=== PATIENT | female | born 1950 | race Caucasian/White ===

== ENCOUNTER 2020-04-26 09:43 | Outpatient (REF) | payer MEDICARE, SELFPAY ==
[2020-04-26 12:06] LABS: Alanine Aminotransferase 19 U/L (0-31); Albumin Level 4.7 g/dL (3.5-5.0); Alkaline Phosphatase 54 U/L (39-117); Anion Gap 11 (12-20); Aspartate Amino Transferase 19 U/L (5-31); Bilirubin Total 0.6 mg/dL (0.0-1.0); Blood Urea Nitrogen 10 mg/dL (9-16); Calcium 9.2 mg/dL (8.4-10.2); Carbon Dioxide 28 mmol/L (22-29); Chloride 104 mmol/L (96-108); Estimated Glomerular Filt Rate > 60; Glucose Random 102 mg/dL (60-115); Potassium 4.3 mmol/l (3.3-5.1); Sodium 139 mmol/L (135-145); Total Protein 7.1 g/dL (6.5-8.0)
== END 2020-04-26 09:44 | disposition home or self-care (01) ==
LOC: HO.HMGCLDS 09:43
PROVIDERS: PCP Internal Medicine; Visit Provider Internal Medicine
DX: I10 Essential (primary) hypertension (principal); E78.9 Disorder of lipoprotein metabolism, unspecified; J44.9 Chronic obstructive pulmonary disease, unspecified
CPT/HCPCS: 80053

== ENCOUNTER 2020-09-03 09:26 | Outpatient (REF) | payer MEDICARE, SELFPAY ==
[2020-09-03 11:07] LABS: MANUAL DIFF FLAG NO
[2020-09-03 11:22] LABS: Basophils Absolute Auto 0.1 X10*3/uL (0.0-0.2); Basophils Percent Auto 1.1 % (0-2); Eosinophils Absolute Auto 0.7 X10*3/uL (0.0-0.4); Eosinophils Percent Auto 10.4 % (0-4); Hematocrit 40.8 % (37-47); Hemoglobin 13.3 g/dl (12.0-16.0); Imm Gran Abs Auto 0.02 X10*3/uL (0.00-0.03); Imm Gran Pct Auto 0.3 % (0.0-0.4); Lymphocytes Absolute Auto 2.5 X10*3/uL (1.2-4.9); Lymphocytes Percent Auto 38.4 % (20-40); Mean Corpuscular HGB Conc 32.6 g/dl (31.0-35.0); Mean Corpuscular Hemoglobin 30.4 pg (27.0-33.0); Mean Corpuscular Volume 93.4 fL (80-98); Mean Platelet Volume 11.7 fL (9.4-12.3); Monocytes Absolute Auto 0.6 X10*3/uL (0.1-1.2); Monocytes Percent Auto 8.7 % (2-11); Neutrophils Absolute Auto 2.6 X10*3/uL (2.0-8.3); Neutrophils Percent Auto 41.1 % (45-73); Platelet Count 245 X10*3/uL (160-400); Red Blood Count 4.37 X10*6/uL (4.20-5.50); Red Cell Distribution Width 12.1 % (11.0-16.0); White Blood Count 6.4 X10*3/uL (4.8-10.8)
[2020-09-03 11:55] LABS: Anion Gap 14 (12-20); Blood Urea Nitrogen 14 mg/dL (9-16); Calcium 8.9 mg/dL (8.4-10.2); Carbon Dioxide 26 mmol/L (22-29); Chloride 106 mmol/L (96-108); Cholesterol 120 mg/dL; Estimated Glomerular Filt Rate > 60; Glucose Fasting 105 mg/dL (60-99); HDL Cholesterol 37 mg/dL; LDL Cholesterol Calculated 44 mg/dl; Sodium 142 mmol/L (135-145); Triglycerides 195 mg/dL
== END 2020-09-03 09:27 | disposition home or self-care (01) ==
LOC: HO.HMGCLDS 09:26
PROVIDERS: PCP Internal Medicine; Visit Provider Internal Medicine
DX: J44.9 Chronic obstructive pulmonary disease, unspecified (principal); E78.9 Disorder of lipoprotein metabolism, unspecified; I10 Essential (primary) hypertension
CPT/HCPCS: 36415; 80048; 80061; 85025

== ENCOUNTER → 2021-03-28 07:26 | Outpatient (BNVA) | payer MEDICARE, SELFPAY | PROVIDERS: PCP Internal Medicine; Visit Provider Physician Assistant | DX: Z12.11 Encounter for screening for malignant neoplasm of colon (principal); J44.9 Chronic obstructive pulmonary disease, unspecified | CPT/HCPCS: 99202 ==

== ENCOUNTER 2021-04-16 09:43 | Outpatient (REF) | payer MEDICARE, SELFPAY ==
[2021-04-16 12:21] LABS: Alanine Aminotransferase 17 U/L (0-31); Albumin Level 4.4 g/dL (3.5-5.0); Alkaline Phosphatase 57 U/L (39-117); Anion Gap 13 (12-20); Aspartate Amino Transferase 15 U/L (5-31); Bilirubin Total 0.4 mg/dL (0.0-1.0); Blood Urea Nitrogen 9 mg/dL (9-16); Calcium 9.1 mg/dL (8.4-10.2); Carbon Dioxide 26 mmol/L (22-29); Chloride 105 mmol/L (96-108); Cholesterol 137 mg/dL; Estimated Glomerular Filt Rate > 60; Glucose Fasting 110 mg/dL (60-99); HDL Cholesterol 33 mg/dL; LDL Cholesterol Calculated 46 mg/dl; Potassium 4.2 mmol/L (3.3-5.1); Sodium 140 mmol/L (135-145); Triglycerides 291 mg/dL
== END 2021-04-16 09:44 | disposition home or self-care (01) ==
LOC: HO.HMGCLDS 09:43
PROVIDERS: PCP Internal Medicine; Visit Provider Internal Medicine
DX: E78.9 Disorder of lipoprotein metabolism, unspecified (principal); I10 Essential (primary) hypertension; J44.9 Chronic obstructive pulmonary disease, unspecified; R73.01 Impaired fasting glucose
CPT/HCPCS: 36415; 80053; 80061

== ENCOUNTER 2021-06-11 07:58 | Day surgery (SDC) | payer MEDICARE, SELFPAY ==
[2021-06-04 14:10] VITALS: BMI 31.3
--- NOTE | 2021-06-10 12:56 | HO.ANESPROP2 ---
Documented by User: Marybeth Mckeon NP 06/10/21 13:01 HPI - Anesthesia Eval Consult details Narrative: 70yo F for Colonoscopy PMFSH Active Problems Active Problems: All Active Problems (Updated 05/07/21 @ 11:06 by Chandler Brand MD) Obesity due to excess calories (Acute) Colon cancer screening (Acute) Impaired fasting blood sugar (Acute) COPD (chronic obstructive pulmonary disease) (Acute) Lipid disorder (Acute) Hypertension, essential (Acute) Past Medical History Medical History COPD (chronic obstructive pulmonary disease) Hypertension, essential Lipid disorder Family History Family History Father Brain tumor Diabetes mellitus Mother Colon cancer Alzheimer's disease Maternal Grandmother Unknown family medical history Maternal Grandfather Unknown family medical history Paternal Grandmother No problems noted. Paternal Grandfather No problems noted. Brother No problems noted. Son No problems noted. Daughter No problems noted. Son Back problem Surgical History Surgical History History of acoustic neuroma History of total hysterectomy History of tubal ligation Hx of colonoscopy Social History Social History Housing: Other (mobile home) Alcohol intake: current Alcohol intake frequency: does not drink Alcohol type: wine Patient Tobacco Use Status: Never used Tobacco Use of substances other than those prescribed or required for medical reasons: No Are you DNR?: No Advance Directives: No Advance Directives Information Provided: Yes Current occupational status: retired Meds Allergies Allergy/AdvReac Type Severity Reaction Status Date / Time codeine AdvReac Unknown severe Verified 05/07/21 10:45 headaches Exam Exam Date and Time: June 10, 2021 1256 Height,Weight and Vital Signs: Height 5 ft 7 in Weight 90.718 kg Pertinent Lab Results Pertinent Lab Results: Laboratory Tests 09/03/20 04/16/21 09:51 09:50 WBC 6.4 Hgb 13.3 Hct 40.8 Plt Count 245 Sodium 140 Potassium 4.2 Chloride 105 Carbon Dioxide 26 BUN 9 Creatinine 0.76 Assessment and Plan Assessment Anesthesia Assessment: Chart Reviewed Documented by User: Tammy Colon MD 06/11/21 09:31 PMF Past Medical History Medical History COPD (chronic obstructive pulmonary disease) Hypertension, essential Lipid disorder Family History Family History Father Brain tumor Diabetes mellitus Mother Colon cancer Alzheimer's disease Maternal Grandmother Unknown family medical history Maternal Grandfather Unknown family medical history Paternal Grandmother No problems noted. Paternal Grandfather No problems noted. Brother No problems noted. Son No problems noted. Daughter No problems noted. Son Back problem Family history of problems with anesthesia: No Surgical History Surgical History History of acoustic neuroma History of total hysterectomy History of tubal ligation Hx of colonoscopy History of Problems with Anesthesia: No Social History Social History Housing: Other (mobile home) Alcohol intake: current Alcohol intake frequency: does not drink Alcohol type: wine Patient Tobacco Use Status: Never used Tobacco Use of substances other than those prescribed or required for medical reasons: No Are you DNR?: No Advance Directives: No Advance Directives Information Provided: Yes Current occupational status: retired Meds Allergies Allergy/AdvReac Type Severity Reaction Status Date / Time codeine AdvReac Unknown severe Verified 05/07/21 10:45 headaches Exam Height,Weight and Vital Signs: Height 5 ft 7 in Weight 90.718 kg Vital Signs Temp Pulse Resp BP Pulse Ox 06/11/21 08:26 97.6 F 68 16 144/78 H 98 Airway Mallampati Class: II TM Dist: >3cm Neck ROM: Full Denture: Upper Heart: RRR Lungs: CTAB Assessment and Plan Assessment Anesthesia Assessment: Anesthesia Plan Discussed Final Anesthetic Review Family History of Problems with Anesthesia: No History of Problems with Anesthesia: No NPO: Yes ASA Class: II Final Preanesthetic Review: No Changes in Pt Med Stat, Meds/Allgs Chart Reviewed, Consent Obtained/Reviewed and Anes Risks/Benef Reviewed Patient Risk: Low Procedure Risk: Low Assessment/Block/Sedation in SS: Assess/Block/Sedation-SS Anesthetic Plan Anesthetic Plan: MAC: Disposition: Standard PACU
[2021-06-11 08:24] VITALS: BMI 30.4
[2021-06-11 08:26] VITALS: BP 144/78; PULSE 68; RESP 16; TEMP 36.4; O2SAT 98
--- NOTE | 2021-06-11 08:29 | MHC.SHP ---
Pre-Procedural Eval Section A Date of Service: 06/11/21 The patient is an INPATIENT: No The History & Physical has been completed within 30 days and I have reviewed it.: No Section B Chief Complaint: screening Details of Present Illness: Colon cancer screening Relevant Family History (Specify if Yes): Yes Relevant Social History: None Present Medications: see Short Stay Collaborative assessment Medical History: Significant History (COPD (chronic obstructive pulmonary disease) Hypertension, essential Lipid disorder) History of Previous Operations: Relevant previous surgery/procedure and date(s) (History of acoustic neuroma History of total hysterectomy History of tubal ligation Hx of colonoscopy) Allergies: Allergies Allergy/AdvReac Type Severity Reaction Status Date / Time codeine AdvReac Unknown severe Verified 05/07/21 10:45 headaches Review of Systems Sugical H&P ROS: Negative: Constitution, Cardiovascular, Respiratory and Gastrointestinal Exam Surgical H&P Exam: Normal: Heart, Normal: Lungs, Normal: Extremities and Normal: Abdomen Plan Diagnosis/Plan: Unchanged I have reviewed the history and physical and performed a pertinent physical examination on my patient. No changes have occurred unless specified.
--- NOTE | 2021-06-11 08:31 | P.OP_ITS ---
Operative Note Operative Note Date of Service: 06/11/21 Narrative: Pre-op diagnosis:?Colon cancer screening, family history of colon cancer (mom at age 75 yrs and at age 78 Yrs) Post-op diagnosis:?other (Colon polyp, diverticulosis) Procedure:? COLONOSCOPY TILL CECUM WITH SNARE POLYPECTOMY Consent: Indications for the procedure and potential complications of bleeding, perforation, reaction to medications and missed diagnosis were discussed with the patient and informed consent was obtained. Instrument: Olympus PCF H 190 L variable stiffness pediatric colonoscope Monitoring: Vital signs and clinical assessment, intermittent blood pressure monitoring, continuous EKG monitoring, Pulse oximetry and Carbon Dioxide monitoring were done throughout the procedure. Colon withdrawl time was 19 minutes. Procedure: The patient was placed in the left lateral decubitis position and pre-procedure medications were administered. After a digital rectal examination of the ano-rectum, the video colonoscope was inserted into the rectum and advanced through the colon to the cecum. The colonoscope was slowly withdrawn in a retrograde panoramic fashion and the colon mucosa was carefully examined including a retroflexed view of the rectum. Findings and interventions are described below. Procedure Difficulty:? Colon was long and tortuous and there was some loop formation Findings: Terminal Ileum: Not evaluated Cecum:? Normal Ascending Colon:? Moderate diverticulosis throughout the colon Transverse Colon:? Moderate diverticulosis throughout the colon Descending Colon:? Moderate diverticulosis throughout the colon Sigmoid Colon:? A 9-10 mm diminutive polyp removed with a cold snare. Moderate diverticulosis Rectum:? Normal Ano-rectum:? Normal Colon preparation:? Good? after some irrigation Impression and Post Procedure Diagnosis: Colonoscopy Findings: One medium sized polyp removed Moderate diverticulosis seen in the entire colon Plan: Await pathology results Patient has an appointment on 06/26/21 in the [facility] with DOMINGO Ashraf. Repeat Colonoscopy interval based on path results - in 5 years if polyps are adenomatous and 10 years if polyps are hyperplastic and if patient is in stable health. (Pt had 3 colonoscopies in the past which were negative). Colon polyps and diverticulosis handouts were given in the discharge area Surgeon:?Low Ruiz MD Anesthesia:?MAC (Pooja Contreras CRNA) Was an Mobile Practice Lead used for this Procedure?:?Yes Mobile Practice Lead:?Pamela Raymundo Estimated blood loss (mL):?0 Pathology:?other (A. sigmoid polyp) Condition:?stable Disposition:?PACU
[2021-06-11] MEDS: Lactated Ringers 1,000 ML 100 ML IVCONT (08:32)
[2021-06-11 10:25] VITALS: BP 134/90; PULSE 66; RESP 16; TEMP 36.1; O2SAT 98
[2021-06-11 10:39] VITALS: BP 141/69; PULSE 64; RESP 16; O2SAT 99
[2021-06-11 10:50] VITALS: BP 162/69; PULSE 61; RESP 16; TEMP 36; O2SAT 96
== END 2021-06-11 11:08 | disposition home or self-care (01) ==
PROVIDERS: PCP Internal Medicine; Visit Provider Internal Medicine Gastroenterology
PROC: 0DJD8ZZ Inspection of Lower Intestinal Tract, Via Natural or Artificial Opening Endoscopic (ICD-10-PCS; CPT 45378; principal; 2021-06-11 09:10)
DX: Z12.11 Encounter for screening for malignant neoplasm of colon (principal); Z80.0 Family history of malignant neoplasm of digestive organs; K63.5 Polyp of colon; K57.30 Diverticulosis of large intestine without perforation or abscess without bleeding; I10 Essential (primary) hypertension; E78.9 Disorder of lipoprotein metabolism, unspecified; J44.9 Chronic obstructive pulmonary disease, unspecified; Z79.899 Other long term (current) drug therapy; Z88.8 Allergy status to other drugs, medicaments and biological substances
CPT/HCPCS: 45385; 88305

== ENCOUNTER → 2021-08-08 10:37 | Outpatient (BNVA) | payer MEDICARE, SELFPAY | PROVIDERS: PCP Internal Medicine; Referring Provider Internal Medicine; Visit Provider Physician Assistant | DX: K57.30 Diverticulosis of large intestine without perforation or abscess without bleeding (principal); K63.5 Polyp of colon | CPT/HCPCS: 99212 ==

== ENCOUNTER 2021-09-03 09:31 | Outpatient (REF) | payer MEDICARE, SELFPAY ==
[2021-09-03 11:56] LABS: Estimated Average Glucose 128 mg/dL; Hemoglobin A1C 149.6361 umol/L; Hemoglobin A1c % 6.1 %
[2021-09-03 12:04] LABS: Alanine Aminotransferase 14 U/L (0-31); Albumin Level 4.3 g/dL (3.5-5.0); Alkaline Phosphatase 48 U/L (39-117); Anion Gap 15 (12-20); Aspartate Amino Transferase 15 U/L (5-31); Bilirubin Total 0.6 mg/dL (0.0-1.0); Blood Urea Nitrogen 15 mg/dL (9-16); Calcium 9.3 mg/dL (8.4-10.2); Carbon Dioxide 25 mmol/L (22-29); Chloride 105 mmol/L (96-108); Estimated Glomerular Filt Rate > 60; Glucose Random 99 mg/dL (60-115); Potassium 4.1 mmol/L (3.3-5.1); Sodium 141 mmol/L (135-145); Total Protein 6.9 g/dL (6.5-8.0)
== END 2021-09-03 09:32 | disposition home or self-care (01) ==
LOC: HO.HMGCLDS 09:31
PROVIDERS: Visit Provider Internal Medicine
DX: E78.9 Disorder of lipoprotein metabolism, unspecified (principal); I10 Essential (primary) hypertension; J44.9 Chronic obstructive pulmonary disease, unspecified; R73.01 Impaired fasting glucose; E66.09 Other obesity due to excess calories
CPT/HCPCS: 36415; 80053; 83036

== ENCOUNTER 2022-07-22 10:00 | Outpatient (REF) | payer MEDICARE, SELFPAY ==
[2022-07-22 14:11] LABS: MANUAL DIFF FLAG NO
[2022-07-22 14:26] LABS: Basophils Percent Auto 0.4 % (0-2); Eosinophils Absolute Auto 0.1 X10*3/uL (0.0-0.4); Eosinophils Percent Auto 1.8 % (0-4); Hematocrit 42.9 % (37.0-47.0); Hemoglobin 13.8 g/dl (12.0-16.0); Imm Gran Abs Auto 0.02 X10*3/uL (0.00-0.03); Imm Gran Pct Auto 0.3 % (0.0-0.4); Lymphocytes Absolute Auto 2.3 X10*3/uL (1.2-4.9); Lymphocytes Percent Auto 30.8 % (20-40); Mean Corpuscular HGB Conc 32.2 g/dl (31.0-35.0); Mean Corpuscular Hemoglobin 30.1 pg (27.0-33.0); Mean Corpuscular Volume 93.5 fL (80.0-98.0); Mean Platelet Volume 11.6 fL (9.4-12.3); Monocytes Absolute Auto 0.7 X10*3/uL (0.1-1.2); Monocytes Percent Auto 8.8 % (2-11); Neutrophils Absolute Auto 4.3 x10*3/uL (2.0-8.3); Neutrophils Percent Auto 57.9 % (45-73); Platelet Count 292 X10*3/uL (160-400); Red Blood Count 4.59 X10*6/uL (4.20-5.50); White Blood Count 7.4 X10*3/uL (4.8-10.8)
[2022-07-22 15:33] LABS: Estimated Average Glucose 117 mg/dL; Hemoglobin A1c % 5.7 %
[2022-07-22 16:09] LABS: Alanine Aminotransferase 13 U/L (0-31); Albumin Level 4.7 g/dL (3.5-5.0); Alkaline Phosphatase 59 U/L (39-117); Anion Gap 13 (12-20); Aspartate Amino Transferase 15 U/L (5-31); Bilirubin Total 0.5 mg/dL (0.0-1.0); Blood Urea Nitrogen 17 mg/dL (9-16); Calcium 9.9 mg/dL (8.4-10.2); Carbon Dioxide 25 mmol/L (22-29); Chloride 105 mmol/L (96-108); Estimated Glomerular Filt Rate > 60; Glucose Random 115 mg/dL (60-115); Potassium 4.6 mmol/L (3.3-5.1); Sodium 138 mmol/L (135-145); Total Protein 7.3 g/dL (6.5-8.0)
== END 2022-07-22 10:01 | disposition home or self-care (01) ==
LOC: HO.HMGCLDS 10:00
PROVIDERS: PCP Internal Medicine; Visit Provider Internal Medicine
DX: E66.09 Other obesity due to excess calories (principal); E78.9 Disorder of lipoprotein metabolism, unspecified; J44.9 Chronic obstructive pulmonary disease, unspecified; R73.01 Impaired fasting glucose; I10 Essential (primary) hypertension
CPT/HCPCS: 36415; 80053; 83036; 85025

== ENCOUNTER 2022-08-11 13:56 | Outpatient (REF) | payer MEDICARE, SELFPAY | END 2022-08-11 13:57 | disposition home or self-care (01) | LOC: HO.LAB 13:56 | PROVIDERS: Visit Provider Internal Medicine | DX: R30.0 Dysuria (principal) | CPT/HCPCS: 87086 ==

== ENCOUNTER 2022-12-01 09:12 | Outpatient (REF) | payer MEDICARE, SELFPAY ==
[2022-12-01 11:27] LABS: Appearance Urine Hazy; Color Urine Yellow; Glucose Urine UA Negative (Negative); Leukocyte Esterase Urine Large (3+) (Negative); Nitrite Urine Negative (Negative); Specific Gravity - Urine 1.015 (1.005-1.025); UMIC TRIGGER UACC YES; Urine Blood Small (1+) (Negative); Urine Ketones Negative (Negative); Urine Protein Negative (Neg-Trace)
[2022-12-01 12:17] LABS: Alanine Aminotransferase 13 U/L (0-31); Albumin Level 4.2 g/dL (3.5-5.0); Alkaline Phosphatase 60 U/L (39-117); Anion Gap 12 (12-20); Aspartate Amino Transferase 15 U/L (5-31); Bilirubin Total 0.5 mg/dL (0.0-1.0); Blood Urea Nitrogen 11 mg/dL (9-16); Calcium 9.6 mg/dL (8.4-10.2); Carbon Dioxide 27 mmol/L (22-29); Chloride 106 mmol/L (96-108); Cholesterol 155 mg/dL; Estimated Glomerular Filt Rate > 60; Glucose Fasting 104 mg/dL (60-99); HDL Cholesterol 37 mg/dL; LDL Cholesterol Calculated 70 mg/dl; Potassium 4.1 mmol/L (3.3-5.1); Sodium 141 mmol/L (135-145); Total Protein 6.7 g/dL (6.5-8.0); Triglycerides 242 mg/dL
[2022-12-01 12:43] LABS: Bacteria Urine Trace (None Seen); Other Crystals Urine Present; Squamous Epithelial Cell Urine >20 /HPF (0-2); UACC Culture Trigger YES; WBC Urine 21-50 /HPF (0-5)
== END 2022-12-01 09:13 | disposition home or self-care (01) ==
LOC: HO.HMGCLDS 09:12
PROVIDERS: PCP Internal Medicine; Visit Provider Internal Medicine
DX: E66.09 Other obesity due to excess calories (principal); E78.9 Disorder of lipoprotein metabolism, unspecified; I10 Essential (primary) hypertension; J44.9 Chronic obstructive pulmonary disease, unspecified; R73.01 Impaired fasting glucose; R82.90 Unspecified abnormal findings in urine
CPT/HCPCS: 36415; 80053; 80061; 81001; 87086

== ENCOUNTER 2022-12-03 09:04 | Outpatient (REF) | payer MEDICARE, SELFPAY ==
[2022-12-03 11:19] LABS: Appearance Urine Clear; Color Urine Dark Yellow; Glucose Urine UA Negative (Negative); Leukocyte Esterase Urine Moderate (2+) (Negative); Nitrite Urine Negative (Negative); UMIC TRIGGER UACC YES; Urine Blood Trace (Negative); Urine Ketones Trace mg/dL (Negative); Urine Protein 30 (1+) mg/dL (Neg-Trace)
[2022-12-03 11:26] LABS: Bacteria Urine None Seen (None Seen); Hyaline Casts Urine 0-2 /LPF (0-2); UACC Culture Trigger YES
== END 2022-12-03 09:05 | disposition home or self-care (01) ==
LOC: HO.HMGCLDS 09:04
PROVIDERS: PCP Internal Medicine; Visit Provider Internal Medicine
DX: R30.0 Dysuria (principal); R82.90 Unspecified abnormal findings in urine
CPT/HCPCS: 81001; 87086

== ENCOUNTER 2023-03-18 09:35 | Outpatient (AMB) | payer MEDICARE, SELFPAY ==
[2023-03-18 09:37] VITALS: BP 128/76; PULSE 74; O2SAT 95; BMI 29.6
--- NOTE | 2023-03-18 09:37 | A.OFFPC_ITS ---
Vital Signs 03/18/23 09:37 Height 5 ft 7 in Weight 189 lb BMI 29.6 BP 128/76 Blood Pressure Location Lt brachial Position Sitting Pulse 74 Pulse Source Pulse Oximeter Pulse Oximetry (%) 95 Oxygen Delivery Method Room Air Intake Visit Reasons: follow up Allergies codeine Adverse Reaction (Unknown, Verified 03/18/23 09:39) severe headaches Medication List - Last Reconciled 03/18/23 by Chandler Brand MD atenolol 50 mg PO DAILY 90 days atorvastatin 20 mg PO DAILY 90 days lisinopril 5 mg (1/2 x 10 mg) PO DAILY 90 days tiotropium bromide 2.5 mcg/actuation (Spiriva Respimat) 2 puffs inhalation DAILY 90 days Tobacco use date assessed: 03/18/23 Fall risk assessment: No Falls in past year Last assessed Fall Risk: 03/18/23 Dental Screening Dental Screen Date: 03/18/23 Did you have a dental visit in the last 12 months?: No Did you have a dental problem in the last 6 months where you did not have access to dental care?: No Was dental information given to patient?: No HPI follow up HPI Details Patient is 72-year-old female came in today for her regular follow-up appointment Blood pressure is 120/76 patient is on atenolol 50 mg , and lisinopril 5 mg She is also on atorvastatin 20 mg for lipid control COPD/asthma stable with Spiriva Patient have impaired fasting sugar she is controlling her diet we will be re peating labs again in May She continued to have recurrent UTIs, she has started taking cranberry tablets And have added probiotic which is helping She said that she canceled urology appointment as when the appointment time came she did not had any symptoms. She is also complaining of itching genitalia off and on I have sent nystatin cream to be used as needed. I have also ordered UA for the patient if she start having symptoms again she will have it done. She is due for labs in May. Bladder ultrasound ordered as well. BMI is 29.6 patient is trying to lose weight She is fairly active and do gardening as well. Follow-up 4 months. [facility] Medical History COPD (chronic obstructive pulmonary disease) Hypertension, essential Lipid disorder Surgical History History of acoustic neuroma History of total hysterectomy History of tubal ligation Hx of colonoscopy Family History Father Brain tumor Diabetes mellitus Mother Colon cancer Alzheimer's disease Maternal Grandmother Unknown family medical history Maternal Grandfather Unknown family medical history Paternal Grandmother No problems noted. Paternal Grandfather No problems noted. Brother No problems noted. Son No problems noted. Daughter No problems noted. Son Back problem Social History Housing: Other (mobile home) Alcohol intake: current Alcohol intake frequency: does not drink Alcohol type: wine Patient Tobacco Use Status: Never used Tobacco e-Cigarette/Vaping Use: Never Used service: No Current occupational status: retired Cognitive needs: No Hearing needs: No Vision needs: Yes Questionnaire PHQ-9 Over the last 2 weeks, how often have you been bothered by any of the following problems? 1. Little interest or pleasure in doing things: not at all 2. Feeling down, depressed, or hopeless: not at all 3. Trouble falling or staying asleep, or sleeping too much: more than half the days 4. Feeling tired or having little energy: several days 5. Poor appetite or overeating: not at all 6. Feeling bad about yourself - or that you are a failure or have let yourself or your family down: not at all 7. Trouble concentrating on things, such as reading the newspaper or watching television: not at all 8. Moving or speaking so slowly that other people could have noticed. Or the opposite - being so fidgety or restless that you have been moving around a lot more than usual: not at all 9. Thoughts that you would be better off or of hurting yourself in some way: not at all Total score: 3 Depression Screening Interpretation: Negative 52023 - PHQ-9 Billing: Yes Source: Developed by Drs. Ángel Zhong, Anjana Leomns, Haile Puri and colleagues, with an educational maya from [employer]. Thrive Questionnaire Date Thrive assessed: 03/18/23 I am a: Patient What is your living situation today?: I have a steady place to live Within the past 12 months, did the food you bought not last and you didn't have the money to get more?: Sometimes True Within the past 12 months, did you worry whether your food would run out before you got money to buy more?: Sometimes True Do you have trouble paying for medicines?: No Do you have trouble getting transportation to medical appointments?: No Do you have trouble paying your heating and electricity bill?: No Do you have trouble taking care of your child, family member or friend?: No Do you have trouble with day-to-day activities such as bathing, preparing meals, shopping, managing finances, etc.?: No Are you currently unemployed and looking for a job?: No Are you interested in more education?: No Please select the resources that you would like help with: Food MIGUEL-7 AMB Questionnaire MIGUEL-7 Date MIGUEL - 7 assessed: 03/18/23 Feeling nervous, anxious, or on edge: 1 = Several days Not being able to stop or control worryin = Not at all Worrying too much about different things: 1 = Several days Trouble relaxin = Several days Being so restless that it is hard to sit still: 0 = Not at all Becoming easily annoyed or irritable: 0 = Not at all Feeling afraid as if something awful might happen: 1 = Several days Total MIGUEL-7 score (0-4 normal; 5-9 mild; 10-14 moderate; 15-21 severe): 4 Source: Developed by Drs. Ángel Zhong, Anjana Lemons, Haile Puri and colleagues, with an educational maya from [employer]. Review of Systems Const Denies chills and Denies fever(s) ENT Denies epistaxis and Denies nasal discharge Card Denies chest pain Resp Denies chest congestion, Denies cough and Denies hemoptysis GI Denies diarrhea and Denies nausea Skin/Breast Denies rash Neuro Reports no additional complaints Psych Reports no additional complaints Endo Reports no additional complaints Physical exam (Primary Care) Vital Signs: Last Vital Signs Pulse 74 03/18/23 09:37 BP 128/76 03/18/23 09:37 Pulse Ox 95 03/18/23 09:37 Oxygen Delivery Method Room Air 03/18/23 09:37 BMI result Body Mass Index 29.6 Tobacco/Smoking Status: Tobacco use Status Tobacco use date assessed 03/18/23 03/18/23 09:41 Patient Tobacco Use Status Never used Tobacco 03/18/23 09:41 e-Cigarette/Vaping Use Never Used 03/18/23 09:41 PHQ-9: PHQ-9 Score PHQ-9: Total score 3 03/18/23 10:11 Depression Screening Interpretation: Negative Thrive Assessment: Date of Thrive Assessment Date Thrive assessed 03/18/23 03/18/23 10:11 Const General: cooperative, comfortable and no acute distress Orientation/consciousness: patient oriented x3 HENMT Head: Yes normocephalic Eyes General: appearance normal, both eyes and all related structures Neck Neck: Yes supple Resp Effort & Inspection: normal respiratory effort, no cough and no stridor Cardio Rhythm: regular rhythm Heart sounds: S1 normal heart sound present and S2 normal heart sound present Skin General skin exam: turgor normal Neuro General: patient oriented x3, tone normal and moves all extremities Extrem Right lower extremity: no edema Left lower extremity: no edema Assessment and Plan Assessment & Plan (1) Hypertension, essential: Code(s): I10 - Essential (primary) hypertension (2) Lipid disorder: Code(s): E78.9 - Disorder of lipoprotein metabolism, unspecified (3) COPD (chronic obstructive pulmonary disease): Code(s): J44.9 - Chronic obstructive pulmonary disease, unspecified Qualifiers: COPD type: emphysema Emphysema type: other Qualified Code(s): J43.8 - Other emphysema (4) Impaired fasting blood sugar: Code(s): R73.01 - Impaired fasting glucose (5) Recurrent UTI: Code(s): N39.0 - Urinary tract infection, site not specified (6) Genital pruritus: Code(s): L29.3 - Anogenital pruritus, unspecified Plan Patient is 72-year-old female came in today for her regular follow-up appointment Blood pressure is 120/76 patient is on atenolol 50 mg , and lisinopril 5 mg She is also on atorvastatin 20 mg for lipid control COPD/asthma stable with Spiriva Patient have impaired fasting sugar she is controlling her diet we will be repeating labs again in May She continued to have recurrent UTIs, she has started taking cranberry tablets And have added probiotic which is helping She said that she canceled urology appointment as when the appointment time came she did not had any symptoms. She is also complaining of itching genitalia off and on I have sent nystatin cr eam to be used as needed. I have also ordered UA for the patient if she start having symptoms again she will have it done. She is due for labs in May. Bladder ultrasound ordered as well. BMI is 29.6 patient is trying to lose weight She is fairly active and do gardening as well. Follow-up 4 months. Orders: Orders Comprehensive [place]. Panel Fast Today E66.09 - Other obesity due to excess calories, E78.9 - Disorder of lipoprotein metabolism, unspecified, I10 - Essential (primary) hypertension, J44.9 - Chronic obstructive pulmonary disease, unspecified, R73.01 - Impaired fasting glucose Hemoglobin A1c Today E66.09 - Other obesity due to excess calories, E78.9 - Disorder of lipoprotein metabolism, unspecified, I10 - Essential (primary) hypertension, J44.9 - Chronic obstructive pulmonary disease, unspecified, R73.01 - Impaired fasting glucose Lipid Panel Today E66.09 - Other obesity due to excess calories, E78.9 - Disorder of lipoprotein metabolism, unspecified, I10 - Essential (primary) hypertension, J44.9 - Chronic obstructive pulmonary disease, unspecified, R73.01 - Impaired fasting glucose Complete Blood Count Auto Diff Today E66.09 - Other obesity due to excess calories, E78.9 - Disorder of lipoprotein metabolism, unspecified, I10 - Essential (primary) hypertension, J44.9 - Chronic obstructive pulmonary disease, unspecified, R73.01 - Impaired fasting glucose UA CC w/rflx Micro + Cult Today N39.0 - Urinary tract infection, site not specified US bladder Today N39.0 - Urinary tract infection, site not specified Medications: New nystatin 1 appl topical DAILY 30 grams 1RF 30 days Coding Level of Care Code Est Pt Level 4 (90684) Diagnoses Hypertension, essential I10 Lipid disorder E78.9 COPD (chronic obstructive pulmonary disease) J43.8 COPD type: emphysema Emphysema type: other Impaired fasting blood sugar R73.01 Recurrent UTI N39.0 Genital pruritus L29.3
== END 2023-03-18 11:53 | disposition home or self-care (01) ==
PROVIDERS: Visit Provider Internal Medicine
DX: I10 Essential (primary) hypertension (principal); E78.9 Disorder of lipoprotein metabolism, unspecified; J43.8 Other emphysema; R73.01 Impaired fasting glucose; N39.0 Urinary tract infection, site not specified; L29.3 Anogenital pruritus, unspecified
CPT/HCPCS: 99214

== ENCOUNTER 2023-03-24 10:19 | Outpatient (REF) | payer MEDICARE, SELFPAY ==
--- NOTE | ~2023-03-24 | US_ITS ---
EXAMINATION: US PELVIS LIMITED (BLADDER) CLINICAL INFORMATION: Urinary tract infection, site not specified. COMPARISON: None available. TECHNIQUE: Real-time imaging of the bladder. FINDINGS: BLADDER: Well distended and normal. Bilateral ureteral jets are demonstrated. Prevoid bladder volume is 171 mL. Postvoid bladder volume is 74 mL. US/US bladder IMPRESSION: Moderate postvoid residual
== END 2023-03-24 10:20 | disposition home or self-care (01) ==
LOC: HO.HMGCX 10:19
PROVIDERS: PCP Internal Medicine; Visit Provider Internal Medicine
DX: N39.0 Urinary tract infection, site not specified (principal)
CPT/HCPCS: 76857

== ENCOUNTER 2023-05-01 08:46 | Outpatient (REF) | payer MEDICARE, SELFPAY | END 2023-05-01 08:47 | disposition home or self-care (01) | LOC: HO.LNP 08:46 | PROVIDERS: PCP Internal Medicine; Visit Provider Nurse Practitioner Family | DX: N39.0 Urinary tract infection, site not specified (principal) | CPT/HCPCS: 51798; 81003; 87086 ==

== ENCOUNTER 2023-05-01 08:46 | Outpatient (AMB) | payer MEDICARE, SELFPAY ==
--- NOTE | 2023-05-01 09:03 | A.OFFVIS_ITS ---
Intake Intake Visit Reasons: Recurrent UTIS Intake Note: New Patient presents for initial visit for recurrent uti's Urology Medications: none Blood Thinner: none PVR: 17ml's *hysterectomy* Filler Sifter Helper Required: No Accompanied by: Friend Allergies codeine Adverse Reaction (Unknown, Verified 05/01/23 09:34) severe headaches Medication List - Last Reconciled 05/01/23 by RADHA PizarroP- atenolol 50 mg PO DAILY 90 days atorvastatin 20 mg PO DAILY 90 days estradiol 0.01%(0.1mg/gram) (Estrace) 1 g vaginal 3XW 90 days lisinopril 5 mg (1/2 x 10 mg) PO DAILY 90 days tiotropium bromide 2.5 mcg/actuation (Spiriva Respimat) 2 puffs inhalation DAILY 90 days HPI HPI Comments History of Present Illness Details Shira is a very pleasant 72-year-old female patient of Dr. Brand she presents to the office today with her sister in law. She has a past medical history of COPD, hypertension, and lipid disorder. She presents to the office today as a new patient for recurrent urinary tract infections. Patient reports noting approximately 6 urinary tract infections over the last year. She reports following up with her PCP regarding UTIs at which time a bladder ultrasound was ordered for further assessment evaluation. These results reviewed with the patient today. Bladder is well distended and normal. Bilateral ureteral jets are demonstrated. Pre void bladder volume is approximately 170 mL. Postvoid bladder volume is approximately 75 mL. In office urinalysis today with 3+ leukocytes negative nitrates. PVR 17 mL. Discussed at length potential causes for recurrent urinary tract infections. Patient reports having had a total hysterectomy in the 1970s ( in her 20s) due to ovarian cysts. She reports being told during previous hysterectomy right kidney was dropped and pushing on her bladder so they fixed her kidney. She does report having issues with her bowels. She reports at time she is constipated whereas other time she experiences diarrhea. She discusses the loss of her Jacques approximately 1 and half years ago and feels stressed with trying to maintain her home alone. She currently denies any UTI like symptoms. She denies urinary urgency, urinary frequency, incontinence, nocturia, hematuria, dysuria, foul smelling urine, changes to urinary stream, flank pain, fever, and or chills. She is happy with her current voiding parameters. When asked she reports to be drinking plenty of water daily. She otherwise offers no other issues or concerns at this time. [facility] Medical History Recurrent UTI COPD (chronic obstructive pulmonary disease) Lipid disorder Hypertension, essential Surgical History Hx of colonoscopy History of total hysterectomy History of tubal ligation History of acoustic neuroma Family History Father Brain tumor Diabetes mellitus Mother Colon cancer Alzheimer's disease Maternal Grandmother Unknown family medical history Maternal Grandfather Unknown family medical history Paternal Grandmother No problems noted. Paternal Grandfather No problems noted. Brother No problems noted. Son No problems noted. Daughter No problems noted. 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 Card Reports as per HPI Resp Reports as per HPI GI Reports no additional complaints Reports as per HPI Musc Reports no additional complaints Neuro Reports no additional complaints Psych Reports no additional complaints Endo Reports no additional complaints Aller/Immun Reports no additional complaints Physical Exam Const General: cooperative, healthy appearing, comfortable, no acute distress, well developed, alert and awake Orientation/consciousness: patient oriented x3 Limitations: no limitations HEENT Head: Yes normal to inspection, Yes normocephalic and Yes atraumatic Ears: hearing grossly normal bilaterally Eyes General: appearance normal, both eyes and all related structures Neck Neck: Yes normal visual inspection and Yes trachea midline Chest Chest palpation & inspection: normal inspection of the chest Resp Effort & Inspection: normal respiratory effort and able to speak in complete sentences Cardio Rate: regular rate GI Inspection: Yes normal to inspection General: Yes no CVA tenderness Back/Spine/Pelvis Back: no CVA tenderness Skin General skin exam: no rashes or lesions noted Neuro General: patient oriented x3 Extrem General: Yes normal to inspection Psych Appearance: grossly normal and well kempt Mental Status: mental status grossly normal Speech and movement: Normal speech and movement present and Clear speech present Affect: normal affect Attitude: cooperative Thought process: Normal thought process present Thought content: Normal thought content present Office Procedures Post Void Residual Post Residual Void Post Void Residual (PVR): 17 [id number] Void Residual by ultrasound Results AMB Urinalysis, Automated UA Leukoctes 500 Julian/uL Last Edit by Valentin Cintron on 05/01/23 09:16 UA Nitrite Negative Last Edit by Stewart Group Holdingssam Klyppermicaela on 05/01/23 09:16 UA Urobilinogen 0.2 mg/dL Last Edit by ZeaKalmicaela on 05/01/23 09:16 UA Protein 15 mg/dL Last Edit by Avatar Realitysantos Klyppermicaela on 05/01/23 09:16 UA pH 6.0 Last Edit by Avatar Realitysantos Cintron on 05/01/23 09:16 UA Blood 10 Russell/uL Last Edit by [employer]sam Klyppermicaela on 05/01/23 09:16 UA Specific [place] 1.015 Last Edit by ZeaKalmicaela on 05/01/23 09:16 UA Ketone Negative Last Edit by ZeaKalmicaela on 05/01/23 09:16 UA Bilirubin 0 mg/dL Last Edit by Avatar Realitysantos Klyppermicaela on 05/01/23 09:16 UA Glucose 0 mg/dL Last Edit by Avatar Realitysantos Klyppermicaela on 05/01/23 09:16 Results Reviewed Results Reviewed: Laboratory Last Values Urine pH (Auto) 6.0 05/01/23 09:07 Specific [place] (Auto) 1.015 05/01/23 09:07 Urine Protein (Auto) 15 mg/dL 05/01/23 09:07 Glucose (UA)(Auto) 0 mg/dL 05/01/23 09:07 Urine Ketones (Auto) Negative 05/01/23 09:07 Urine Blood (Auto) 10 Russell/uL 05/01/23 09:07 Urine Nitrite (Auto) Negative 05/01/23 09:07 Urine Bilirubin (Auto) 0 mg/dL 05/01/23 09:07 Urine Urobilinogen (Auto) 0.2 mg/dL 05/01/23 09:07 Leukocyte Esterase (Auto) 500 Julian/uL 05/01/23 09:07 Assessment & Plan Assessment & Plan (1) Recurrent UTI: Code(s): N39.0 - Urinary tract infection, site not specified (2) Complicated urinary tract infection: Code(s): N39.0 - Urinary tract infection, site not specified Plan In office urinalysis results reviewed with the patient today; as noted above; will send for urine culture. Patient currently denying any UTI like symptoms. She reports be happy with current voiding parameters. Recent bladder ultrasound results reviewed with the patient today; as noted above. Will obtain renal ultrasound for further assessment evaluation. Discussed at length potential causes of recurrent urinary tract infections as well as further management. Start Estrace cream as discussed and prescribed. Continue drinking plenty of water daily. Discussed UTI prevention with D mannose supplement, vitamin-C, increasing fluid intake, behavioral therapy with timed voiding, perineal hygiene and postcoital voiding, and management of constipation with stool softeners and increased fiber intake. Follow-up in 6-8 weeks with imaging to be completed prior; or sooner with any issues, concerns, and or questions. Orders: Orders US renal BI Today N20.0 - Calculus of kidney AMB Urinalysis Automated Today Z13.9 - Encounter for screening, unspecified AMB Post Void Residual by ultrasound Today N39.0 - Urinary tract infection, site not specified Medications: New estradiol 0.01%(0.1mg/gram) (Estrace) 1 g vaginal 3XW 90 days 42.5 grams 3RF Patient Instructions: The patient had an opportunity to ask questions regarding the treatment plan. All questions were answered. Physical exam, labs, and imaging were discussed and reviewed in detail. As well as risks, benefits, and discussion of treatment choices. No major barriers to understanding were identified. The patient expressed understanding and agreement with the above treatment plan. The patient was made aware they should contact our office by phone for worsening of their current condition, the appearance of new symptoms, or with any questions or concerns. Compliance is encouraged with any medications and follow up testing that is ordered. It is a privilege to be allowed the opportunity to participate in? your urological care.? Again, if you have any questions or concerns If you have any questions or concerns please do not hesitate to contact me. The office is [phone]. This note is constructed using voice recognition software. While every effort has been made to ensure accuracy associate professor of library science errors may have been included. Yours sincerely, ROBERT Pizarro-DEBBY Coding Level of Care Code New Pt Level 4 (62436) Diagnoses Recurrent UTI N39.0 Complicated urinary tract infection N39.0 CPT Codes Post Residual Void - PVR CPT Code: 96695-Mwzt Void Residual by ultrasound ([id number])
== END 2023-05-01 09:34 | disposition home or self-care (01) ==
PROVIDERS: PCP Internal Medicine; Visit Provider Nurse Practitioner Family
DX: Z13.9 Encounter for screening, unspecified (principal); N39.0 Urinary tract infection, site not specified
CPT/HCPCS: 99204

== ENCOUNTER 2023-05-01 15:59 | Outpatient (AMB) | payer MEDICARE, SELFPAY ==
--- NOTE | 2023-05-01 16:04 | AM.OFFWIN_ITS ---
Intake Vital Signs 05/01/23 16:06 Height 5 ft 7 in Weight 190 lb BMI 29.8 BP 120/78 Blood Pressure Location Lt brachial Position Sitting Pulse 90 Pulse Source Pulse Oximeter Temp 97.8 F Temp Source Temporal Artery Scan Pulse Oximetry (%) 97 Intake Visit Reasons: tick bite, left arm Intake Note: pt is here for c/o tick bite on left arm Patient Tobacco Use Status: Never used Tobacco Allergies codeine Adverse Reaction (Unknown, Verified 05/18/23 06:16) severe headaches Medication List - Last Reconciled 05/18/23 by Darryl Doyle MD atenolol 50 mg PO DAILY 90 days atorvastatin 20 mg PO DAILY 90 days doxycycline hyclate 100 mg PO ONCE 1 day estradiol 0.01%(0.1mg/gram) (Estrace) 1 g vaginal 3XW 90 days lisinopril 5 mg (1/2 x 10 mg) PO DAILY 90 days tiotropium bromide 2.5 mcg/actuation (Spiriva Respimat) 2 puffs inhalation DAILY 90 days Do you need a note to return to daycare/school/sports/work: Yes HPI tick bite, left arm HPI Details 72-year-old female presents to the [facility] for a sick visit. Patient reports that she has a tick bite on her left arm. Small erythema around the bite area. [facility] Medical History Recurrent UTI COPD (chronic obstructive pulmonary disease) Lipid disorder Hypertension, essential Surgical History Hx of colonoscopy History of total hysterectomy History of tubal ligation History of acoustic neuroma Family History Father Brain tumor Diabetes mellitus Mother Colon cancer Alzheimer's disease Maternal Grandmother Unknown family medical history Maternal Grandfather Unknown family medical history Paternal Grandmother No problems noted. Paternal Grandfather No problems noted. Brother No problems noted. Son No problems noted. Daughter No problems noted. Son Back problem Social History Housing: Other (mobile home) Alcohol intake: current Alcohol intake frequency: does not drink Alcohol type: wine Patient Tobacco Use Status: Never used Tobacco e-Cigarette/Vaping Use: Never Used service: No Current occupational status: retired Cognitive needs: No Hearing needs: No Vision needs: Yes Physical Exam Vital Signs: Last Vital Signs Temp 97.8 F 05/01/23 16:06 Pulse 90 05/01/23 16:06 BP 120/78 05/01/23 16:06 Pulse Ox 97 05/01/23 16:06 BMI result Body Mass Index 29.8 Skin Other: Left elbow: Erythematous area around a small hyperemic area. No tick visualized Results AMB Urinalysis, Automated UA Leukoctes 500 Julian/uL Last Edit by Ganji on 05/01/23 09:16 UA Nitrite Negative Last Edit by Ganji on 05/01/23 09:16 UA Urobilinogen 0.2 mg/dL Last Edit by Ganji on 05/01/23 09:16 UA Protein 15 mg/dL Last Edit by Ganji on 05/01/23 09:16 UA pH 6.0 Last Edit by Ganji on 05/01/23 09:16 UA Blood 10 Russell/uL Last Edit by Ganji on 05/01/23 09:16 UA Specific [place] 1.015 Last Edit by Ganji on 05/01/23 09:16 UA Ketone Negative Last Edit by Ganji on 05/01/23 09:16 UA Bilirubin 0 mg/dL Last Edit by Ganji on 05/01/23 09:16 UA Glucose 0 mg/dL Last Edit by Ganji on 05/01/23 09:16 Assessment & Plan Assessment & Plan (1) Tick bite: Code(s): W57.XXXA - Bitten or stung by nonvenomous insect and other nonvenomous arthropods, initial encounter Plan: Signs and symptoms of Lyme disease explained. Lyme titer in 3 weeks. Single dose of doxycycline provided. Orders: Orders Lyme IgG/IgM w/reflex to WB 05/01/23 W57.XXXA - Bitten or stung by nonvenomous insect and other nonvenomous arthropods, initial encounter Medications: New doxycycline hyclate 100 mg PO ONCE 1 cap 0RF 1 day Coding Level of Care Code Est Pt Level 3 (69413) Diagnoses Tick bite W57.XXXA
[2023-05-01 16:06] VITALS: BP 120/78; PULSE 90; TEMP 36.6; O2SAT 97; BMI 29.8
== END 2023-05-01 16:27 | disposition home or self-care (01) ==
PROVIDERS: PCP Internal Medicine; Visit Provider Internal Medicine
DX: T63.481A Toxic effect of venom of other arthropod, accidental (unintentional), initial encounter (principal)
CPT/HCPCS: 99213

== ENCOUNTER 2023-05-26 08:48 | Outpatient (REF) | payer MEDICARE, SELFPAY ==
--- NOTE | ~2023-05-26 | US_ITS ---
EXAMINATION: US RETROPERITONEAL LIMITED (RENAL ONLY) CLINICAL INFORMATION: Calculus of kidney. COMPARISON: None available. TECHNIQUE: Real-time imaging of the kidneys. FINDINGS: RIGHT KIDNEY: 13.6 x 5.3 x 6.7 cm (SAG x AP x TRV). The kidney is normal in size, contour, and echogenicity. Renal cortical thickness is normal. No calculi or focal parenchymal lesions. No hydronephrosis. LEFT KIDNEY: 12.8 x 5.8 x 5.2 cm (SAG x AP x TRV). The kidney is normal in size, contour, and echogenicity. Renal cortical thickness is normal. No calculi or focal parenchymal lesions. No hydronephrosis. US/US renal BI IMPRESSION: Unremarkable study.
== END 2023-05-26 08:49 | disposition home or self-care (01) ==
LOC: HO.HMGCX 08:48
PROVIDERS: PCP Internal Medicine; Visit Provider Nurse Practitioner Family
DX: N20.0 Calculus of kidney (principal)
CPT/HCPCS: 76775

== ENCOUNTER 2023-06-10 08:52 | Outpatient (AMB) | payer MEDICARE, SELFPAY ==
--- NOTE | 2023-06-10 09:21 | MHC.OFFVIS ---
Intake Intake Visit Reasons: 6w/US Intake Note: Patient presents for follow up visit for recurrent uti's/ultrasound (imaging 05/26/23) Urology Medications: estrace cream Blood Thinner: none PVR: 66ml's *hysterectomy* Criminal Legal Assistant Required: No Accompanied by: Self / Same As Patient Allergies codeine Adverse Reaction (Unknown, Verified 06/10/23 19:47) severe headaches Medication List - Last Reconciled 06/10/23 by RADHA PizarroP- atenolol 50 mg PO DAILY 90 days atorvastatin 20 mg PO DAILY 90 days estradiol 0.01%(0.1mg/gram) (Estrace) 1 g vaginal 3XW 90 days lisinopril 5 mg (1/2 x 10 mg) PO DAILY 90 days tiotropium bromide 2.5 mcg/actuation (Spiriva Respimat) 2 puffs inhalation DAILY 90 days HPI HPI Comments History of Present Illness Details Shira is a very pleasant 72-year-old female patient of Dr. Brand she presents to the office today with her sister in law. She has a past medical history of COPD, hypertension, and lipid disorder. She presents to the office today for follow-up. Of note, patient was seen approximately 6 weeks ago as a new patient for recurrent urinary tract infections at which time a renal ultrasound was ordered for further assessment evaluation in the patient was started on Estrace cream. In discussion with the patient today she reports to be doing and feeling well. Recent renal ultrasound results reviewed with the patient today. Bilateral kidneys with no calculi, lesions, and or hydronephrosis. Previous bladder ultrasound was ordered and performed by PCP which noted the bladder is well distended and normal. Bilateral ureteral jets are demonstrated. Pre void bladder volume is approximately 170 mL. Postvoid bladder volume is approximately 75 mL. In office urinalysis results reviewed with the patient today. PVR 66 mLs. Patient reports having had a total hysterectomy in the 1970s ( in her 20s) due to ovarian cysts. She does report having issues with her bowels. She reports at time she is constipated whereas other time she experiences diarrhea. She discusses the loss of her Jacques approximately 1 and half years ago and feels stressed with trying to maintain her home alone. She currently denies any UTI like symptoms. She denies urinary urgency, urinary frequency, incontinence, nocturia, hematuria, dysuria, foul smelling urine, changes to urinary stream, flank pain, fever, and or chills. She is happy with her current voiding parameters. When asked she reports to be drinking plenty of water daily. She otherwise offers no other issues or concerns at this time. ON LICENSE OF [facility] Medical History Recurrent UTI COPD (chronic obstructive pulmonary disease) Lipid disorder Hypertension, essential Surgical History Hx of colonoscopy History of total hysterectomy History of tubal ligation History of acoustic neuroma Family History Father Brain tumor Diabetes mellitus Mother Colon cancer Alzheimer's disease Maternal Grandmother Unknown family medical history Maternal Grandfather Unknown family medical history Paternal Grandmother No problems noted. Paternal Grandfather No problems noted. Brother No problems noted. Son No problems noted. Daughter No problems noted. 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 Card Reports as per HPI Resp Reports as per HPI GI Reports no additional complaints Reports as per HPI Musc Reports no additional complaints Neuro Reports no additional complaints Psych Reports no additional complaints Endo Reports no additional complaints Aller/Immun Reports no additional complaints Physical Exam Const General: cooperative, healthy appearing, comfortable, no acute distress, well developed, alert and awake Orientation/consciousness: patient oriented x3 Limitations: no limitations HEENT Head: Yes normal to inspection, Yes normocephalic and Yes atraumatic Ears: hearing grossly normal bilaterally Eyes General: appearance normal, both eyes and all related structures Neck Neck: Yes normal visual inspection and Yes trachea midline Chest Chest palpation & inspection: normal inspection of the chest Resp Effort & Inspection: normal respiratory effort and able to speak in complete sentences Cardio Rate: regular rate GI Inspection: Yes normal to inspection General: Yes no CVA tenderness Back/Spine/Pelvis Back: no CVA tenderness Skin General skin exam: no rashes or lesions noted Neuro General: patient oriented x3 Extrem General: Yes normal to inspection Psych Appearance: grossly normal and well kempt Mental Status: mental status grossly normal Speech and movement: Normal speech and movement present and Clear speech present Affect: normal affect Attitude: cooperative Thought process: Normal thought process present Thought content: Normal thought content present Office Procedures Post Void Residual Post Residual Void Post Void Residual (PVR): 66 [id number] Void Residual by ultrasound Results AMB Urinalysis, Automated UA Leukoctes 15 Julian/uL Last Edit by [employer] on 06/10/23 09:40 UA Nitrite Negative Last Edit by UGOBE on 06/10/23 09:40 UA Urobilinogen 0.2 mg/dL Last Edit by [employer] on 06/10/23 09:40 UA Protein 15 mg/dL Last Edit by [employer] on 06/10/23 09:40 UA pH 6.0 Last Edit by [employer] on 06/10/23 09:40 UA Blood 25 Russell/uL Last Edit by [employer] on 06/10/23 09:40 UA Specific [place] 1.015 Last Edit by [employer] on 06/10/23 09:40 UA Ketone Negative Last Edit by [employer] on 06/10/23 09:40 UA Bilirubin 0 mg/dL Last Edit by [employer] on 06/10/23 09:40 UA Glucose 0 mg/dL Last Edit by [employer] on 06/10/23 09:40 Results Reviewed Results Reviewed: Laboratory Last Values Urine pH (Auto) 6.0 06/10/23 09:29 Specific [place] (Auto) 1.015 06/10/23 09:29 Urine Protein (Auto) 15 mg/dL 06/10/23 09:29 Glucose (UA)(Auto) 0 mg/dL 06/10/23 09:29 Urine Ketones (Auto) Negative 06/10/23 09:29 Urine Blood (Auto) 25 Russell/uL 06/10/23 09:29 Urine Nitrite (Auto) Negative 06/10/23 09:29 Urine Bilirubin (Auto) 0 mg/dL 06/10/23 09:29 Urine Urobilinogen (Auto) 0.2 mg/dL 06/10/23 09:29 Leukocyte Esterase (Auto) 15 Julian/uL 06/10/23 09:29 Ordering Physician: Stefania Celeste Date of Service: 05/26/23 Procedure(s): US renal BI Accession Number(s): [id number] cc: Chandler Brand MD; Stefania Celeste~ EXAMINATION: US RETROPERITONEAL LIMITED (RENAL ONLY) CLINICAL INFORMATION: Calculus of kidney. COMPARISON: None available. TECHNIQUE: Real-time imaging of the kidneys. FINDINGS: RIGHT KIDNEY: 13.6 x 5.3 x 6.7 cm (SAG x AP x TRV). The kidney is normal in size, contour, and echogenicity. Renal cortical thickness is normal. No calculi or focal parenchymal lesions. No hydronephrosis. LEFT KIDNEY: 12.8 x 5.8 x 5.2 cm (SAG x AP x TRV). The kidney is normal in size, contour, and echogenicity. Renal cortical thickness is normal. No calculi or focal parenchymal lesions. No hydronephrosis. US/US renal BI IMPRESSION: Unremarkable study. Assessment & Plan Assessment & Plan (1) Recurrent UTI: Code(s): N39.0 - Urinary tract infection, site not specified Plan In office urinalysis results reviewed with the patient today; as noted above. Recent renal ultrasound results reviewed with the patient today; as noted above Continue Estrace cream as discussed and prescribed. Discussed at length potential causes of recurrent urinary tract infections. Discussed incomplete bladder emptying Discussed UTI prevention with D mannose supplement, vitamin-C, increasing fluid intake, behavioral therapy with timed voiding, perineal hygiene and postcoital voiding, and management of constipation with stool softeners and increased fiber intake. Discussed possible near future low-dose terazosin Follow-up in 3 months with PVR; or sooner with any issues, concerns, and or questions. Orders: Orders AMB Urinalysis Automated Today Z13.9 - Encounter for screening, unspecified AMB Post Void Residual by ultrasound Today N39.0 - Urinary tract infection, site not specified Patient Instructions: The patient had an opportunity to ask questions regarding the treatment plan. All questions were answered. Physical exam, labs, and imaging were discussed and reviewed in detail. As well as risks, benefits, and discussion of treatment choices. No major barriers to understanding were identified. The patient expressed understanding and agreement with the above treatment plan. The patient was made aware they should contact our office by phone for worsening of their current condition, the appearance of new symptoms, or with any questions or concerns. Compliance is encouraged with any medications and follow up testing that is ordered. It is a privilege to be allowed the opportunity to participate in? your urological care.? Again, if you have any questions or concerns If you have any questions or concerns please do not hesitate to contact me. The office is [phone]. This note is constructed using voice recognition software. While every effort has been made to ensure accuracy canal superintendent errors may have been included. Yours sincerely, SYDNIE Pizarro Coding Level of Care Code Est Pt Level 3 (11582) Diagnoses Recurrent UTI N39.0 CPT Codes Post Residual Void - PVR CPT Code: 36946-Yjxl Void Residual by ultrasound ([id number])
== END 2023-06-10 10:01 | disposition home or self-care (01) ==
PROVIDERS: PCP Internal Medicine; Visit Provider Nurse Practitioner Family
DX: N39.0 Urinary tract infection, site not specified (principal); Z13.9 Encounter for screening, unspecified
CPT/HCPCS: 99213

== ENCOUNTER → 2023-06-10 08:52 | Outpatient (BNVA) | payer MEDICARE, SELFPAY | PROVIDERS: PCP Internal Medicine; Visit Provider Nurse Practitioner Family | DX: N39.0 Urinary tract infection, site not specified (principal) | CPT/HCPCS: 51798; 81003; 99212 ==

== ENCOUNTER 2023-07-03 09:40 | Outpatient (REF) | payer MEDICARE, SELFPAY ==
[2023-07-03 13:22] LABS: MANUAL DIFF FLAG NO
[2023-07-03 13:34] LABS: Basophils Percent Auto 0.6 % (0-2); Eosinophils Absolute Auto 0.1 X10*3/uL (0.0-0.4); Eosinophils Percent Auto 2.1 % (0-4); Hematocrit 41.1 % (37.0-47.0); Hemoglobin 13.4 g/dl (12.0-16.0); Imm Gran Abs Auto 0.01 X10*3/uL (0.00-0.03); Imm Gran Pct Auto 0.2 % (0.0-0.4); Lymphocytes Absolute Auto 1.5 X10*3/uL (1.2-4.9); Lymphocytes Percent Auto 31.8 % (20-40); Mean Corpuscular HGB Conc 32.6 g/dl (31.0-35.0); Mean Corpuscular Hemoglobin 30.5 pg (27.0-33.0); Mean Corpuscular Volume 93.4 fL (80.0-98.0); Mean Platelet Volume 11.8 fL (9.4-12.3); Monocytes Absolute Auto 0.4 X10*3/uL (0.1-1.2); Monocytes Percent Auto 9.3 % (2-11); Neutrophils Absolute Auto 2.6 x10*3/uL (2.0-8.3); Platelet Count 258 X10*3/uL (160-400); Red Cell Distribution Width 12.2 % (11.0-16.0); White Blood Count 4.7 X10*3/uL (4.8-10.8)
[2023-07-03 13:39] LABS: Appearance Urine Cloudy; Color Urine Yellow; Glucose Urine UA Negative (Negative); Leukocyte Esterase Urine Negative (Negative); Nitrite Urine Negative (Negative); PH 7.5 (5.0-9.0); Specific Gravity - Urine 1.015 (1.005-1.025); Urine Blood Negative (Negative); Urine Ketones Negative (Negative); Urine Protein Negative (Neg-Trace)
[2023-07-03 13:54] LABS: Estimated Average Glucose 114 mg/dL; Hemoglobin A1c % 5.6 % (<6.0)
[2023-07-03 14:08] LABS: Alanine Aminotransferase 17 U/L (0-31); Albumin Level 4.3 g/dL (3.5-5.0); Alkaline Phosphatase 51 U/L (39-117); Anion Gap 14 (12-20); Aspartate Amino Transferase 20 U/L (5-31); Bilirubin Total 0.5 mg/dL (0.0-1.0); Blood Urea Nitrogen 11 mg/dL (9-16); Carbon Dioxide 24 mmol/L (22-29); Chloride 102 mmol/L (96-108); Cholesterol 171 mg/dL (<200); Estimated Glomerular Filt Rate > 60; Glucose Fasting 106 mg/dL (60-99); HDL Cholesterol 44 mg/dL (>40); LDL Cholesterol Calculated 68 mg/dL (<100); Sodium 136 mmol/L (135-145); Total Protein 7.2 g/dL (6.5-8.0); Triglycerides 295 mg/dL (<150)
[2023-07-07 19:03] LABS: Lyme Blot 7.12 index
[2023-07-09 12:54] LABS: 18 KD (IgG) Band NON-REACTIVE; 23 KD (IgG) Band NON-REACTIVE; 23 KD (IgM) Band NON-REACTIVE; 28 KD (IgG) Band NON-REACTIVE; 30 KD (IgG) Band NON-REACTIVE; 39 KD (IgM) Band NON-REACTIVE; 39KD (IgG) Band NON-REACTIVE; 41 KD (IgM) Band NON-REACTIVE; 41KD (IgG) Band REACTIVE; 45 KD (IgG) Band REACTIVE; 58 KD (IgG) Band REACTIVE; 66 KD (IgG) Band NON-REACTIVE; 93 KD (IgG) Band REACTIVE; Lyme Abs Screen POSITIVE; Lyme IgG Blot Interp NEGATIVE (NEGATIVE); Lyme IgM Blot Interp NEGATIVE (NEGATIVE)
== END 2023-07-03 09:41 | disposition home or self-care (01) ==
LOC: HO.HMGCLDS 09:40
PROVIDERS: Internal Medicine; PCP Internal Medicine; Visit Provider Internal Medicine
DX: I10 Essential (primary) hypertension (principal); E78.9 Disorder of lipoprotein metabolism, unspecified; J44.9 Chronic obstructive pulmonary disease, unspecified; R73.01 Impaired fasting glucose; E66.09 Other obesity due to excess calories; N39.0 Urinary tract infection, site not specified; T14.8XXA Other injury of unspecified body region, initial encounter; W57.XXXA Bitten or stung by nonvenomous insect and other nonvenomous arthropods, initial encounter
CPT/HCPCS: 36415; 80053; 80061; 81003; 83036; 85025; 86617; 86618

== ENCOUNTER 2023-07-17 09:34 | Outpatient (AMB) | payer MEDICARE, SELFPAY ==
[2023-07-17 09:37] VITALS: BP 126/74; PULSE 71; O2SAT 97; BMI 29.8
--- NOTE | 2023-07-17 09:37 | MHC.PC.OV ---
Vital Signs 07/17/23 09:37 Height 5 ft 7 in Weight 190 lb 4 oz BMI 29.8 BP 126/74 Blood Pressure Location Rt brachial Position Sitting Pulse 71 Pulse Source Pulse Oximeter Pulse Oximetry (%) 97 Oxygen Delivery Method Room Air Intake Visit Reasons: 4 Month follow up Allergies codeine Adverse Reaction (Unknown, Verified 07/17/23 09:37) severe headaches Medication List - Last Reconciled 07/17/23 by Chandler Brand MD atenolol 50 mg PO DAILY 90 days atorvastatin 20 mg PO DAILY 90 days doxycycline hyclate 100 mg PO BID 21 days estradiol 0.01%(0.1mg/gram) (Estrace) 1 g vaginal 3XW 90 days lisinopril 5 mg (1/2 x 10 mg) PO DAILY 90 days tiotropium bromide 2.5 mcg/actuation (Spiriva Respimat) 2 puffs inhalation DAILY 90 days Tobacco use date assessed: 07/17/23 Fall risk assessment: No Falls in past year Last assessed Fall Risk: 07/17/23 Dental Screening Dental Screen Date: 07/17/23 Did you have a dental visit in the last 12 months?: No Did you have a dental problem in the last 6 months where you did not have access to dental care?: No Was dental information given to patient?: No HPI 4 Month follow up HPI Details Patient is 72-year-old female came in today for her regular follow-up appointment Patient have a history of recurrent UTIs she has been evaluated by urologist, and currently taking azo [id number] along with cranberry concentrate tablets and is doing very well. She has also starting using Estrace vaginal cream which is helping. Patient also have history of diverticulosis, impaired fasting sugar, COPD, lipid disorder. Recent labs shows well-controlled hemoglobin A1c fasting sugar was 106 Blood pressure is stable Lipids are controlled except triglycerides are high we are keeping an eye on that. [place] recently came in to our walk-in clinic with a chief complaint of tick bite Lyme test was ordered which came back positive She was given 21 days of doxycycline I have sent 9 more days total of 30 days. Patient is tolerating antibiotic there are no side effects. COPD stable patient is on Spiriva She is very active take care of her snow shoveling as well She will return end of November with physical exam appointment [facility] Medical History Recurrent UTI COPD (chronic obstructive pulmonary disease) Lipid disorder Hypertension, essential Surgical History Hx of colonoscopy History of total hysterectomy History of tubal ligation History of acoustic neuroma Family History Father Brain tumor Diabetes mellitus Mother Colon cancer Alzheimer's disease Maternal Grandmother Unknown family medical history Maternal Grandfather Unknown family medical history Paternal Grandmother No problems noted. Paternal Grandfather No problems noted. Brother No problems noted. Son No problems noted. Daughter No problems noted. Son Back problem Social History Housing: Other (mobile home) Alcohol intake: current Alcohol intake frequency: does not drink Alcohol type: wine Patient Tobacco Use Status: Never used Tobacco e-Cigarette/Vaping Use: Never Used service: No Current occupational status: retired Cognitive needs: No Hearing needs: No Vision needs: Yes Questionnaire PHQ-9 Over the last 2 weeks, how often have you been bothered by any of the following problems? 1. Little interest or pleasure in doing things: not at all 2. Feeling down, depressed, or hopeless: not at all 3. Trouble falling or staying asleep, or sleeping too much: more than half the days 4. Feeling tired or having little energy: several days 5. Poor appetite or overeating: not at all 6. Feeling bad about yourself - or that you are a failure or have let yourself or your family down: not at all 7. Trouble concentrating on things, such as reading the newspaper or watching television: not at all 8. Moving or speaking so slowly that other people could have noticed. Or the opposite - being so fidgety or restless that you have been moving around a lot more than usual: not at all 9. Thoughts that you would be better off or of hurting yourself in some way: not at all Total score: 3 Depression Screening Interpretation: Negative Depression Screening Done: Yes 29449 - PHQ-9 Billing: Yes Source: Developed by Drs. Ángel Zhong, AnjanaHaile De Jesus and colleagues, with an educational maya from [employer]. Thrive Questionnaire Date Thrive assessed: 07/17/23 I am a: Patient What is your living situation today?: I have a steady place to live Within the past 12 months, did the food you bought not last and you didn't have the money to get more?: Sometimes True Within the past 12 months, did you worry whether your food would run out before you got money to buy more?: Sometimes True Do you have trouble paying for medicines?: No Do you have trouble getting transportation to medical appointments?: No Do you have trouble paying your heating and electricity bill?: No Do you have trouble taking care of your child, family member or friend?: No Do you have trouble with day-to-day activities such as bathing, preparing meals, shopping, managing finances, etc.?: No Are you currently unemployed and looking for a job?: No Are you interested in more education?: No Please select the resources that you would like help with: Food Currently or been in a relationship where the following occur: no concerns reported AUDIT C Alcohol Use Questionnaire (AUDIT-C) 1. How often do you have a drink containing alcohol?: Monthly or less 2. How many drinks containing alcohol do you have on a typical day when you are drinking?: 1 or 2 3. How often do you have six or more drinks on one occasion?: Never Total Score: 1 Score Reviewed/Action Taken: Yes MIGUEL-7 AMB Questionnaire MIGUEL-7 Date MIGUEL - 7 assessed: 07/17/23 Feeling nervous, anxious, or on edge: 1 = Several days Not being able to stop or control worryin = Not at all Worrying too much about different things: 1 = Several days Trouble relaxin = Several days Being so restless that it is hard to sit still: 0 = Not at all Becoming easily annoyed or irritable: 0 = Not at all Feeling afraid as if something awful might happen: 1 = Several days Total MIGUEL-7 score (0-4 normal; 5-9 mild; 10-14 moderate; 15-21 severe): 4 Source: Developed by Drs. Ángel Zhong, Haile Pugh and colleagues, with an educational maya from [employer]. MIGUEL-7 Assessment Billing MIGUEL-7 Assessment Tool: MIGUEL-7 Assessment 55537 Review of Systems Const Denies chills and Denies fever(s) ENT Denies epistaxis and Denies nasal discharge Card Denies chest pain Resp Denies chest congestion, Denies cough and Denies hemoptysis GI Denies diarrhea and Denies nausea Skin/Breast Denies rash Neuro Reports no additional complaints Psych Reports no additional complaints Endo Reports no additional complaints Physical exam (Primary Care) Vital Signs: Last Vital Signs Pulse 71 07/17/23 09:37 BP 126/74 07/17/23 09:37 Pulse Ox 97 07/17/23 09:37 Oxygen Delivery Method Room Air 07/17/23 09:37 BMI result Body Mass Index 29.8 Tobacco/Smoking Status: Tobacco use Status Tobacco use date assessed 07/17/23 07/17/23 09:38 Patient Tobacco Use Status Never used Tobacco 07/17/23 09:38 e-Cigarette/Vaping Use Never Used 07/17/23 09:38 PHQ-9: PHQ-9 Score PHQ-9: Total score 3 07/17/23 10:10 Depression Screening Interpretation: Negative Thrive Assessment: Date of Thrive Assessment Date Thrive assessed 07/17/23 07/17/23 10:10 Currently or been in a relationship where the following occur: no concerns reported Const General: cooperative, comfortable and no acute distress Orientation/consciousness: patient oriented x3 HENMT Head: Yes normocephalic Eyes General: appearance normal, both eyes and all related structures Neck Neck: Yes supple Resp Effort & Inspection: normal respiratory effort, no cough and no stridor Cardio Rhythm: regular rhythm Heart sounds: S1 normal heart sound present and S2 normal heart sound present Skin General skin exam: turgor normal Neuro General: patient oriented x3, tone normal and moves all extremities Extrem Right lower extremity: no edema Left lower extremity: no edema Assessment and Plan Assessment & Plan (1) Lyme disease: Code(s): A69.20 - Lyme disease, unspecified (2) Hypertension, essential: Code(s): I10 - Essential (primary) hypertension (3) Lipid disorder: Code(s): E78.9 - Disorder of lipoprotein metabolism, unspecified (4) COPD (chronic obstructive pulmonary disease): Code(s): J44.9 - Chronic obstructive pulmonary disease, unspecified Qualifiers: COPD type: emphysema Emphysema type: other Qualified Code(s): J43.8 - Other emphysema (5) Impaired fasting blood sugar: Code(s): R73.01 - Impaired fasting glucose Plan Patient is 72-year-old female came in today for her regular follow-up appointment Patient have a history of recurrent UTIs she has been evaluated by urologist, and currently taking azo [id number] along with cranberry concentrate tablets and is doing very well. She has also starting using Estrace vaginal cream which is helping. Patient also have history of diverticulosis, impaired fasting sugar, COPD, lipid disorder. Recent labs shows well-controlled hemoglobin A1c fasting sugar was 106 Blood pressure is stable Lipids are controlled except triglycerides are high we are keeping an eye on that. [place] and recently came in to our walk-in clinic with a chief complaint of tick bite Lyme test was ordered which came back positive She was given 21 days of doxycycline I have sent 9 more days total of 30 days. Patient is tolerating antibiotic there are no side effects. COPD stable patient is on Spiriva She is very active take care of her snow shoveling as well She will return end of November with physical exam appointment Medications: New doxycycline hyclate 100 mg PO BID 9 days 18 caps 0RF Coding Level of Care Code Est Pt Level 4 (63592) Diagnoses Lyme disease A69.20 Hypertension, essential I10 Lipid disorder E78.9 Other emphysema J43.8 COPD type: emphysema Emphysema type: other Impaired fasting blood sugar R73.01 Additional Codes MIGUEL-7 Assessment Billing - MIGUEL-7 Assessment Tool: MIGUEL-7 Assessment 32500 ([id number])
== END 2023-07-17 10:06 | disposition home or self-care (01) ==
PROVIDERS: PCP Internal Medicine; Visit Provider Internal Medicine
DX: A69.20 Lyme disease, unspecified (principal); I10 Essential (primary) hypertension; E78.9 Disorder of lipoprotein metabolism, unspecified; J43.8 Other emphysema; R73.01 Impaired fasting glucose
CPT/HCPCS: 99214

== ENCOUNTER 2023-12-09 10:27 | Outpatient (AMB) | payer MEDICARE, SELFPAY ==
[2023-12-09 10:30] VITALS: BP 130/78; PULSE 71; O2SAT 96; BMI 30.1
--- NOTE | 2023-12-09 10:30 | A.OFFPC_ITS ---
Vital Signs 12/09/23 10:30 Height 5 ft 7 in Weight 192 lb 6 oz BMI 30.1 BP 130/78 Blood Pressure Location Rt brachial Position Sitting Pulse 71 Pulse Source Pulse Oximeter Pulse Oximetry (%) 96 Oxygen Delivery Method Room Air Intake Visit Reasons: Annual PE Allergies codeine Adverse Reaction (Unknown, Verified 12/09/23 10:37) severe headaches Medication List - Last Reconciled 12/09/23 by Chandler Brand MD atenolol 50 mg PO DAILY 90 days atorvastatin 20 mg PO DAILY 90 days doxycycline hyclate 100 mg PO BID 9 days estradiol 0.01%(0.1mg/gram) (Estrace) 1 g vaginal 3XW 90 days lisinopril 5 mg (1/2 x 10 mg) PO DAILY 90 days tiotropium bromide 2.5 mcg/actuation (Spiriva Respimat) 2 puffs inhalation DAILY 90 days Tobacco use date assessed: 12/09/23 Fall risk assessment: No Falls in past year Last assessed Fall Risk: 12/09/23 Dental Screening Dental Screen Date: 12/09/23 Did you have a dental visit in the last 12 months?: No Did you have a dental problem in the last 6 months where you did not have access to dental care?: No Was dental information given to patient?: No HPI Annual PE HPI Details Patient is 73-year-old female came in today for physical exam Mammogram was June of last year Colonoscopy was May of 2021, at age 69 no precancerous polyps Blood test to be done fasting order placed Blood pressure is stable Breathing is stable, continue Spiriva Continue lisinopril 5 mg and atenolol 50 mg Atorvastatin 20 mg for lipid control. Follow-up early March [facility] Medical History Recurrent UTI COPD (chronic obstructive pulmonary disease) Lipid disorder Hypertension, essential Surgical History Hx of colonoscopy History of total hysterectomy History of tubal ligation History of acoustic neuroma Family History Father Brain tumor Diabetes mellitus Mother Colon cancer Alzheimer's disease Maternal Grandmother Unknown family medical history Maternal Grandfather Unknown family medical history Paternal Grandmother No problems noted. Paternal Grandfather No problems noted. Brother No problems noted. Son No problems noted. Daughter No problems noted. Son Back problem Social History Housing: Other (mobile home) Alcohol intake: current Alcohol intake frequency: does not drink Alcohol type: wine Patient Tobacco Use Status: Never used Tobacco e-Cigarette/Vaping Use: Never Used service: No Current occupational status: retired Cognitive needs: No Hearing needs: No Vision needs: Yes Questionnaire Thrive Questionnaire Date Thrive assessed: 07/17/23 AUDIT C Alcohol Use Questionnaire (AUDIT-C) 1. How often do you have a drink containing alcohol?: Monthly or less 2. How many drinks containing alcohol do you have on a typical day when you are drinking?: 1 or 2 3. How often do you have six or more drinks on one occasion?: Never Total Score: 1 Score Reviewed/Action Taken: Yes MIGUEL-7 AMB Questionnaire MIGUEL-7 Date MIGUEL - 7 assessed: 07/17/23 Source: Developed by Drs. Ángel Zhong, Anjana Lemons, Haile Puri and colleagues, with an educational maya from [employer]. Review of Systems Const Denies chills, Denies fever(s) and Denies headache(s) Eyes Denies blurry vision ENT Denies headache(s), Denies nasal discharge, Denies nasal obstruction, Denies odynophagia and Denies sinus pain Card Denies chest pain at rest and Denies chest pain with activity Resp Denies cough and Denies hemoptysis GI Denies diarrhea, Denies odynophagia, Denies vomiting and Denies hematemesis Reports as per HPI Musc Denies abnormal gait Skin/Breast Reports as per HPI Neuro Denies Neuro-related abnormal movements, Denies Abnormal speech present, Denies abnormal gait, Denies headache(s) and Denies Sensory deficit (Neuro) Psych Denies mood swings and Denies paranoia Endo Reports as per HPI Meek/Lymph Reports as per HPI Aller/Immun Reports as per HPI Physical exam (Primary Care) Vital Signs: Last Vital Signs Pulse 71 12/09/23 10:30 BP 130/78 12/09/23 10:30 Pulse Ox 96 12/09/23 10:30 Oxygen Delivery Method Room Air 12/09/23 10:30 BMI result Body Mass Index 30.1 Tobacco/Smoking Status: Tobacco use Status Tobacco use date assessed 12/09/23 12/09/23 10:37 Patient Tobacco Use Status Never used Tobacco 12/09/23 10:33 e-Cigarette/Vaping Use Never Used 12/09/23 10:33 Thrive Assessment: Date of Thrive Assessment Date Thrive assessed 07/17/23 12/09/23 10:33 Const General: cooperative, comfortable and no acute distress Orientation/consciousness: patient oriented x3 HENMT Head: Yes normocephalic and Yes atraumatic Eyes General: appearance normal, both eyes and all related structures Pupils: Equal, round and reactive pupils present EOM: EOMs intact bilaterally Neck Neck: Yes supple and No lymphadenopathy Thyroid: Thyroid normal Lymphatic: no lymphadenopathy noted Chest Breast/axilla palpation: normal palpation of the breasts Resp Effort & Inspection: normal respiratory effort and able to speak in complete sentences Auscultation: clear to auscultation bilaterally Cardio Heart sounds: S1 normal heart sound present and S2 normal heart sound present GI Palpation (GI): Soft to palpation and nontender Auscultation: normal bowel sounds General: Yes no CVA tenderness Back/Spine/Pelvis Back: no CVA tenderness Skin General skin exam: elasticity normal and turgor normal Neuro General: patient oriented x3 and gait normal Cranial nerves: Yes Equal, round and reactive pupils present Speech: No Abnormal speech present Sensory Exam: No Sensory deficit (Neuro) Coordination: Romberg test negative Extrem General: Yes normal exam except as noted and No edema Assessment and Plan Assessment & Plan (1) Encounter for general adult medical examination with abnormal findings: Code(s): Z00.01 - Encounter for general adult medical examination with abnormal findings (2) Hypertension, essential: Code(s): I10 - Essential (primary) hypertension (3) Lipid disorder: Code(s): E78.9 - Disorder of lipoprotein metabolism, unspecified (4) COPD (chronic obstructive pulmonary disease): Code(s): J44.9 - Chronic obstructive pulmonary disease, unspecified Qualifiers: COPD type: emphysema Emphysema type: other Qualified Code(s): J43.8 - Other emphysema (5) Impaired fasting blood sugar: Code(s): R73.01 - Impaired fasting glucose (6) Obesity due to excess calories: Code(s): E66.09 - Other obesity due to excess calories Qualifiers: Body mass index: BMI 30.0-30.9 Obesity classification: adult class 1 (BMI 30 - 34.9) Serious obesity comorbidity presence: with serious comorbidity Qualified Code(s): E66.09 - Other obesity due to excess calories; Z68.30 - Body mass index [BMI] 30.0-30.9, adult (7) Arthrosis: Code(s): M19.90 - Unspecified osteoarthritis, unspecified site Plan Patient is 73-year-old female came in today for physical exam Mammogram was June of last year Colonoscopy was May of 2021, at age 69 no precancerous polyps Blood test to be done fasting order placed Blood pressure is stable Breathing is stable, continue Spiriva Continue lisinopril 5 mg and atenolol 50 mg Atorvastatin 20 mg for lipid control. Follow-up early March Patient is deaf in right ear, history of vestibular schwannoma BMI is elevated need to lose weight Orders: Orders Hemoglobin A1c Today E66.09 - Other obesity due to excess calories, E78.9 - Disorder of lipoprotein metabolism, unspecified, I10 - Essential (primary) hypertension, J43.8 - Other emphysema, N39.0 - Urinary tract infection, site not specified, R73.01 - Impaired fasting glucose, Z00.01 - Encounter for general adult medical examination with abnormal findings Comprehensive [place]. Panel Fast Today E66.09 - Other obesity due to excess calories, E78.9 - Disorder of lipoprotein metabolism, unspecified, I10 - Essential (primary) hypertension, J43.8 - Other emphysema, N39.0 - Urinary tract infection, site not specified, R73.01 - Impaired fasting glucose, Z00.01 - Encounter for general adult medical examination with abnormal findings Lipid Panel Today E66.09 - Other obesity due to excess calories, E78.9 - Disorder of lipoprotein metabolism, unspecified, I10 - Essential (primary) hypertension, J43.8 - Other emphysema, N39.0 - Urinary tract infection, site not specified, R73.01 - Impaired fasting glucose, Z00.01 - Encounter for general adult medical examination with abnormal findings Vitamin D 25-OH (D2 and D3) Today E66.09 - Other obesity due to excess calories, E78.9 - Disorder of lipoprotein metabolism, unspecified, I10 - Essential (primary) hypertension, J43.8 - Other emphysema, N39.0 - Urinary tract infection, site not specified, R73.01 - Impaired fasting glucose, Z00.01 - Encounter for general adult medical examination with abnormal findings Lyme IgG/IgM w/reflex to WB Today M19.90 - Unspecified osteoarthritis, unspecified site Complete Blood Count Auto Diff Today E66.09 - Other obesity due to excess calories, E78.9 - Disorder of lipoprotein metabolism, unspecified, I10 - Essential (primary) hypertension, J43.8 - Other emphysema, N39.0 - Urinary tract infection, site not specified, R73.01 - Impaired fasting glucose, Z00.01 - Encounter for general adult medical examination with abnormal findings Coding Level of Care Code Est Pt Prev Care >65y(49243) Diagnoses Encounter for general adult medical examination with abnormal findings Z00.01 Hypertension, essential I10 Lipid disorder E78.9 Other emphysema J43.8 COPD type: emphysema Emphysema type: other Impaired fasting blood sugar R73.01 Class 1 obesity due to excess calories with serious comorbidity and body mass index (BMI) of 30.0 to 30.9 in adult E66.09; Z68.30 Body mass index: BMI 30.0-30.9 Obesity classification: adult class 1 (BMI 30 - 34.9) Serious obesity comorbidity presence: with serious comorbidity Arthrosis M19.90
== END 2023-12-09 10:57 | disposition home or self-care (01) ==
PROVIDERS: Visit Provider Internal Medicine
DX: Z00.00 Encounter for general adult medical examination without abnormal findings (principal); J43.8 Other emphysema; Z68.30 Body mass index [BMI] 30.0-30.9, adult; E66.09 Other obesity due to excess calories; I10 Essential (primary) hypertension; E78.9 Disorder of lipoprotein metabolism, unspecified; R73.01 Impaired fasting glucose; M19.90 Unspecified osteoarthritis, unspecified site
CPT/HCPCS: 99397

== ENCOUNTER 2024-03-08 09:36 | Outpatient (REF) | payer MEDICARE, SELFPAY ==
[2024-03-08 13:24] LABS: MANUAL DIFF FLAG NO
[2024-03-08 13:29] LABS: Basophils Percent Auto 0.6 % (0-2); Eosinophils Absolute Auto 0.1 X10*3/uL (0.0-0.4); Eosinophils Percent Auto 2.1 % (0-4); Hemoglobin 13.4 g/dl (12.0-16.0); Imm Gran Abs Auto 0.01 X10*3/uL (0.00-0.03); Imm Gran Pct Auto 0.2 % (0.0-0.4); Lymphocytes Absolute Auto 1.6 X10*3/uL (1.2-4.9); Lymphocytes Percent Auto 31.6 % (20-40); Mean Corpuscular HGB Conc 33.5 g/dl (31.0-35.0); Mean Corpuscular Hemoglobin 31.2 pg (27.0-33.0); Mean Platelet Volume 11.3 fL (9.4-12.3); Monocytes Absolute Auto 0.5 X10*3/uL (0.1-1.2); Monocytes Percent Auto 9.4 % (2-11); Neutrophils Absolute Auto 2.9 x10*3/uL (2.0-8.3); Neutrophils Percent Auto 56.1 % (45-73); Platelet Count 249 X10*3/uL (160-400); Red Cell Distribution Width 12.2 % (11.0-16.0); White Blood Count 5.1 X10*3/uL (4.8-10.8)
[2024-03-08 13:43] LABS: Estimated Average Glucose 111 mg/dL; Hemoglobin A1c % 5.5 % (<6.0)
[2024-03-08 13:53] LABS: Alanine Aminotransferase 17 U/L (0-31); Albumin Level 4.4 g/dL (3.5-5.0); Alkaline Phosphatase 43 U/L (39-117); Anion Gap 13 (12-20); Aspartate Amino Transferase 19 U/L (5-31); Bilirubin Total 0.5 mg/dL (0.0-1.0); Blood Urea Nitrogen 12 mg/dL (9-16); Calcium 9.5 mg/dL (8.4-10.2); Carbon Dioxide 25 mmol/L (22-29); Chloride 103 mmol/L (96-108); Cholesterol 137 mg/dL (<200); Estimated Glomerular Filt Rate > 60; Glucose Fasting 100 mg/dL (60-99); HDL Cholesterol 39 mg/dL (>40); LDL Cholesterol Calculated 55 mg/dL (<100); Sodium 137 mmol/L (135-145); Total Protein 7.1 g/dL (6.5-8.0); Triglycerides 217 mg/dL (<150)
[2024-03-09 19:58] LABS: Lyme Blot 6.06 index
[2024-03-10 10:50] LABS: Lyme Abs Screen POSITIVE
[2024-03-11 08:53] LABS: 18 KD (IgG) Band NON-REACTIVE; 23 KD (IgG) Band NON-REACTIVE; 23 KD (IgM) Band NON-REACTIVE; 28 KD (IgG) Band NON-REACTIVE; 30 KD (IgG) Band NON-REACTIVE; 39 KD (IgM) Band NON-REACTIVE; 39KD (IgG) Band NON-REACTIVE; 41 KD (IgM) Band NON-REACTIVE; 41KD (IgG) Band REACTIVE; 45 KD (IgG) Band REACTIVE; 58 KD (IgG) Band REACTIVE; 66 KD (IgG) Band NON-REACTIVE; 93 KD (IgG) Band NON-REACTIVE; Lyme IgG Blot Interp NEGATIVE (NEGATIVE); Lyme IgM Blot Interp NEGATIVE (NEGATIVE)
[2024-03-14 15:03] LABS: Vitamin D 25-OH, D2 <4 ng/mL; Vitamin D 25-OH, D3 28 ng/mL; Vitamin D 25-OH, Total 28 ng/mL (30-100)
== END 2024-03-08 09:37 | disposition home or self-care (01) ==
LOC: HO.HMGCLDS 09:36
PROVIDERS: PCP Internal Medicine; Visit Provider Internal Medicine
DX: Z00.01 Encounter for general adult medical examination with abnormal findings (principal); I10 Essential (primary) hypertension; E78.9 Disorder of lipoprotein metabolism, unspecified; J43.8 Other emphysema; R73.01 Impaired fasting glucose; E66.09 Other obesity due to excess calories; N39.0 Urinary tract infection, site not specified; M19.90 Unspecified osteoarthritis, unspecified site
CPT/HCPCS: 36415; 80053; 80061; 82306; 83036; 85025; 86617; 86618

== ENCOUNTER 2024-03-16 09:57 | Outpatient (AMB) | payer MEDICARE, SELFPAY ==
[2024-03-16 10:02] VITALS: BP 130/80; PULSE 78; O2SAT 94; BMI 29.8
--- NOTE | 2024-03-16 10:02 | A.OFFPC_ITS ---
Vital Signs 03/16/24 10:02 Height 5 ft 7 in Weight 190 lb 6 oz BMI 29.8 BP 130/80 Blood Pressure Location Rt brachial Position Sitting Pulse 78 Pulse Source Pulse Oximeter Pulse Oximetry (%) 94 Oxygen Delivery Method Room Air Intake Visit Reasons: 4M F/U Allergies codeine Adverse Reaction (Unknown, Verified 12/09/23 10:37) severe headaches Medication List - Last Reconciled 03/16/24 by Chandler Brand MD atenolol 50 mg PO DAILY 90 days atorvastatin 20 mg PO DAILY 90 days doxycycline hyclate 100 mg PO BID 30 days estradiol 0.01%(0.1mg/gram) (Estrace) 1 g vaginal 3XW 90 days lisinopril 5 mg (1/2 x 10 mg) PO DAILY 90 days tiotropium bromide 2.5 mcg/actuation (Spiriva Respimat) 2 puffs inhalation DAILY 90 days Tobacco use date assessed: 12/09/23 Dental Screening Dental Screen Date: 12/09/23 HPI 4M F/U HPI Details Patient is 73-year-old female came in today for her regular follow-up appointment Patient have history of diverticulosis, impaired fasting sugar, COPD, lipid disorder Patient was treated for Lymes once, recently her titer came back high again She was restarted on doxycycline and she has infectious disease consultation coming up Patient have a history of recurrent UTIs she has been evaluated by urologist, and currently taking azo [id number] along with cranberry concentrate tablets and is doing very well. She has also restarted estrogen vaginal cream Her LDL came back 55 She has modified her diet and is more active physically I have reduced her atorvastatin to 10 mg currently she is taking 20 Blood pressure is stable She lives alone and is taking care of her yard and getting ready to pain in neck COPD stable patient is on Spiriva She will return in 4 months for follow-up appointment, lab order placed to be done fasting before visit [facility] Medical History Recurrent UTI COPD (chronic obstructive pulmonary disease) Lipid disorder Hypertension, essential Surgical History Hx of colonoscopy History of total hysterectomy History of tubal ligation History of acoustic neuroma Family History Father Brain tumor Diabetes mellitus Mother Colon cancer Alzheimer's disease Maternal Grandmother Unknown family medical history Maternal Grandfather Unknown family medical history Paternal Grandmother No problems noted. Paternal Grandfather No problems noted. Brother No problems noted. Son No problems noted. Daughter No problems noted. Son Back problem Social History Housing: Other (mobile home) Alcohol intake: current Alcohol intake frequency: does not drink Alcohol type: wine Patient Tobacco Use Status: Never used Tobacco e-Cigarette/Vaping Use: Never Used service: No Current occupational status: retired Cognitive needs: No Hearing needs: No Vision needs: Yes Questionnaire Thrive Questionnaire Date Thrive assessed: 07/17/23 AUDIT C Alcohol Use Questionnaire (AUDIT-C) 1. How often do you have a drink containing alcohol?: Monthly or less 2. How many drinks containing alcohol do you have on a typical day when you are drinking?: 1 or 2 3. How often do you have six or more drinks on one occasion?: Never Total Score: 1 Score Reviewed/Action Taken: Yes MIGUEL-7 AMB Questionnaire MIGUEL-7 Date MIGUEL - 7 assessed: 07/17/23 Source: Developed by Drs. Ángel Zhong, Anjana Lemons, Haile Puri and colleagues, with an educational maya from [employer]. Review of Systems Const Denies chills and Denies fever(s) ENT Denies epistaxis and Denies nasal discharge Card Denies chest pain Resp Denies chest congestion, Denies cough and Denies hemoptysis GI Denies diarrhea and Denies nausea Skin/Breast Denies rash Neuro Reports no additional complaints Psych Reports no additional complaints Endo Reports no additional complaints Physical exam (Primary Care) Vital Signs: Last Vital Signs Pulse 78 03/16/24 10:02 BP 130/80 03/16/24 10:02 Pulse Ox 94 03/16/24 10:02 Oxygen Delivery Method Room Air 03/16/24 10:02 BMI result Body Mass Index 29.8 Tobacco/Smoking Status: Tobacco use Status Tobacco use date assessed 12/09/23 03/16/24 10:06 Patient Tobacco Use Status Never used Tobacco 03/16/24 10:06 e-Cigarette/Vaping Use Never Used 03/16/24 10:06 Thrive Assessment: Date of Thrive Assessment Date Thrive assessed 07/17/23 03/16/24 10:06 Const General: cooperative, comfortable and no acute distress Orientation/consciousness: patient oriented x3 HENMT Head: Yes normocephalic Eyes General: appearance normal, both eyes and all related structures Neck Neck: Yes supple Resp Effort & Inspection: normal respiratory effort, no cough and no stridor Cardio Rhythm: regular rhythm Heart sounds: S1 normal heart sound present and S2 normal heart sound present Skin General skin exam: turgor normal Neuro General: patient oriented x3, tone normal and moves all extremities Extrem Right lower extremity: no edema Left lower extremity: no edema Assessment and Plan Assessment & Plan (1) Lyme disease: Code(s): A69.20 - Lyme disease, unspecified (2) Hypertension, essential: Code(s): I10 - Essential (primary) hypertension (3) Lipid disorder: Code(s): E78.9 - Disorder of lipoprotein metabolism, unspecified (4) COPD (chronic obstructive pulmonary disease): Code(s): J44.9 - Chronic obstructive pulmonary disease, unspecified Qualifiers: COPD type: emphysema Emphysema type: other Qualified Code(s): J43.8 - Other emphysema (5) Impaired fasting blood sugar: Code(s): R73.01 - Impaired fasting glucose Plan Patient is 73-year-old female came in today for her regular follow-up appointment Patient have history of diverticulosis, impaired fasting sugar, COPD, lipid disorder Patient was treated for Lymes once, recently her titer came back high again She was restarted on doxycycline and she has infectious disease consultation coming up Patient have a history of recurrent UTIs she has been evaluated by urologist, and currently taking azo [id number] along with cranberry concentrate tablets and is doing very well. She has also restarted estrogen vaginal cream Her LDL came back 55 She has modified her diet and is more active physically I have reduced her atorvastatin to 10 mg currently she is taking 20 Blood pressure is stable She lives alone and is taking care of her yard and getting ready to pain in neck COPD stable patient is on Spiriva She will return in 4 months for follow-up appointment, lab order placed to be done fasting before visit Orders: Orders Complete Blood Count Auto Diff Today A69.20 - Lyme disease, unspecified, E78.9 - Disorder of lipoprotein metabolism, unspecified, I10 - Essential (primary) hypertension, J43.8 - Other emphysema, R73.01 - Impaired fasting glucose Comprehensive [place]. Panel Fast Today A69.20 - Lyme disease, unspecified, E78.9 - Disorder of lipoprotein metabolism, unspecified, I10 - Essential (primary) hypertension, J43.8 - Other emphysema, R73.01 - Impaired fasting glucose Lipid Panel Today A69.20 - Lyme disease, unspecified, E78.9 - Disorder of lipoprotein metabolism, unspecified, I10 - Essential (primary) hypertension, J43.8 - Other emphysema, R73.01 - Impaired fasting glucose Vitamin D 25-OH (D2 and D3) Today A69.20 - Lyme disease, unspecified, E78.9 - Disorder of lipoprotein metabolism, unspecified, I10 - Essential (primary) hypertension, J43.8 - Other emphysema, R73.01 - Impaired fasting glucose Hemoglobin A1c Today A69.20 - Lyme disease, unspecified, E78.9 - Disorder of lipoprotein metabolism, unspecified, I10 - Essential (primary) hypertension, J43.8 - Other emphysema, R73.01 - Impaired fasting glucose Vitamin B12 Today A69.20 - Lyme disease, unspecified, E78.9 - Disorder of lipoprotein metabolism, unspecified, I10 - Essential (primary) hypertension, J43.8 - Other emphysema, R73.01 - Impaired fasting glucose Medications: Changed From atorvastatin 20 mg PO DAILY 90 days 90 tabs 1RF E78.9 - Disorder of lipoprotein metabolism, unspecified To atorvastatin 10 mg PO DAILY 90 days 90 tabs 1RF E78.9 - Disorder of lipoprotein metabolism, unspecified Coding Level of Care Code Est Pt Level 4 (83171) Complex EM visit Add On G2211 Diagnoses Lyme disease A69.20 Hypertension, essential I10 Lipid disorder E78.9 Other emphysema J43.8 COPD type: emphysema Emphysema type: other Impaired fasting blood sugar R73.01
== END 2024-03-16 10:19 | disposition home or self-care (01) ==
PROVIDERS: PCP Internal Medicine; Visit Provider Internal Medicine
DX: A69.20 Lyme disease, unspecified (principal); I10 Essential (primary) hypertension; E78.9 Disorder of lipoprotein metabolism, unspecified; J43.8 Other emphysema; R73.01 Impaired fasting glucose
CPT/HCPCS: 99214; G2211

== ENCOUNTER 2024-03-23 14:02 | Outpatient (AMB) | payer MEDICARE, SELFPAY ==
--- NOTE | 2024-03-23 14:02 | MHC.OFFVIS ---
Vital Signs 03/23/24 14:09 Height 5 ft 7 in Weight 195 lb 8 oz BMI 30.6 BP 145/77 H Blood Pressure Location Lt brachial Position Sitting Pulse 73 Pulse Source Monitor Intake Visit Reasons: Room 3, reff aneudy lyme disease Tablet Technician Required: No Allergies codeine Adverse Reaction (Unknown, Verified 12/09/23 10:37) severe headaches HPI HPI reff aneudy lyme disease: Details: She reports tick embedded left clavicular area 05/2023. She was given one month Doxycycline after and felt fatigue at first and then better. She had no fever or chills. She reports getting Lyme testing then and then also six months later with two positive bands and despite no symptoms received testing and one month Doxycycline per patient. [facility] Medical History Recurrent UTI COPD (chronic obstructive pulmonary disease) Lipid disorder Hypertension, essential Surgical History Hx of colonoscopy History of total hysterectomy History of tubal ligation History of acoustic neuroma Family History Father Brain tumor Diabetes mellitus Mother Colon cancer Alzheimer's disease Maternal Grandmother Unknown family medical history Maternal Grandfather Unknown family medical history Paternal Grandmother No problems noted. Paternal Grandfather No problems noted. Brother No problems noted. Son No problems noted. Daughter No problems noted. Son Back problem Social History Housing: Other (mobile home) Alcohol intake: current Alcohol intake frequency: does not drink Alcohol type: wine Patient Tobacco Use Status: Never used Tobacco e-Cigarette/Vaping Use: Never Used service: No Current occupational status: retired Cognitive needs: No Hearing needs: No Vision needs: Yes Review of Systems Const All systems reviewed & are unremarkable except as noted in HPI and below Physical Exam Vital Signs: Last Vital Signs Pulse 73 03/23/24 14:09 BP 145/77 H 03/23/24 14:09 BMI result Body Mass Index 30.6 Const General: cooperative Orientation/consciousness: patient oriented x3 HEENT Head: Yes normal to inspection Mouth: Normal oral and palatal mucosa present Eyes General: appearance normal, both eyes and all related structures Pupils: Equal, round and reactive pupils present Resp Effort & Inspection: normal respiratory effort Cardio Rate: regular rate Rhythm: regular rhythm GI Palpation (GI): Soft to palpation and nontender General: Yes no CVA tenderness Back/Spine/Pelvis Back: no CVA tenderness Skin General skin exam: no rashes or lesions noted Neuro General: patient oriented x3 Cranial nerves: Yes CN's II-XII intact bilaterally and Yes Equal, round and reactive pupils present Extrem General: Yes normal to inspection Psych Appearance: grossly normal Assessment & Plan Assessment & Plan (1) Tick bite: Comment: She has had possible initial Lyme disease 05/2023. She has not had symptoms since then. She has had repeat labs and two bands and then more Doxycycline. Code(s): W57.XXXA - Bitten or stung by nonvenomous insect and other nonvenomous arthropods, initial encounter Category: Medical Plan: No further testing or treatment unless symptoms of rash or fever. Coding Level of Care Code New Pt Level 3 (09815) Diagnoses Tick bite W57.XXXA
[2024-03-23 14:09] VITALS: BP 145/77; PULSE 73; BMI 30.6
== END 2024-03-23 14:44 | disposition home or self-care (01) ==
PROVIDERS: PCP Internal Medicine; Visit Provider Internal Medicine
DX: T63.481A Toxic effect of venom of other arthropod, accidental (unintentional), initial encounter (principal)
CPT/HCPCS: 99203

== ENCOUNTER → 2024-03-23 14:02 | Outpatient (BNVA) | payer MEDICARE, SELFPAY | PROVIDERS: PCP Internal Medicine; Visit Provider Internal Medicine | DX: T14.8XXA Other injury of unspecified body region, initial encounter (principal); W57.XXXA Bitten or stung by nonvenomous insect and other nonvenomous arthropods, initial encounter; Y93.9 Activity, unspecified; Y92.9 Unspecified place or not applicable; Y99.9 Unspecified external cause status | CPT/HCPCS: 99202 ==

== ENCOUNTER 2024-07-18 09:43 | Outpatient (REF) | payer MEDICARE, SELFPAY ==
[2024-07-18 13:21] LABS: MANUAL DIFF FLAG NO
[2024-07-18 13:23] LABS: Basophils Percent Auto 0.5 % (0-2); Eosinophils Absolute Auto 0.1 X10*3/uL (0.0-0.4); Eosinophils Percent Auto 1.8 % (0-4); Hematocrit 42.5 % (37.0-47.0); Hemoglobin 13.7 g/dl (12.0-16.0); Imm Gran Abs Auto 0.01 X10*3/uL (0.00-0.03); Imm Gran Pct Auto 0.2 % (0.0-0.4); Lymphocytes Absolute Auto 1.8 X10*3/uL (1.2-4.9); Lymphocytes Percent Auto 31.2 % (20-40); Mean Corpuscular HGB Conc 32.2 g/dl (31.0-35.0); Mean Corpuscular Hemoglobin 30.4 pg (27.0-33.0); Mean Corpuscular Volume 94.2 fL (80.0-98.0); Mean Platelet Volume 11.5 fL (9.4-12.3); Monocytes Absolute Auto 0.6 X10*3/uL (0.1-1.2); Monocytes Percent Auto 10.3 % (2-11); Neutrophils Absolute Auto 3.1 x10*3/uL (2.0-8.3); Platelet Count 263 X10*3/uL (160-400); Red Blood Count 4.51 X10*6/uL (4.20-5.50); Red Cell Distribution Width 12.5 % (11.0-16.0); White Blood Count 5.6 X10*3/uL (4.8-10.8)
[2024-07-18 13:40] LABS: Estimated Average Glucose 111 mg/dL; Hemoglobin A1C 131.7343 umol/L; Hemoglobin A1c % 5.5 % (<6.0); Total Hemoglobin (HGBA1C) 3550.7398 umol/L
[2024-07-18 13:44] LABS: Alanine Aminotransferase 24 U/L (0-31); Albumin Level 4.5 g/dL (3.5-5.0); Alkaline Phosphatase 47 U/L (39-117); Anion Gap 12 (12-20); Aspartate Amino Transferase 20 U/L (5-31); Bilirubin Total 0.5 mg/dL (0.0-1.0); Blood Urea Nitrogen 14 mg/dL (9-16); Calcium 9.5 mg/dL (8.4-10.2); Carbon Dioxide 26 mmol/L (22-29); Chloride 105 mmol/L (96-108); Cholesterol 159 mg/dL (<200); Estimated Glomerular Filt Rate > 60; Glucose Fasting 102 mg/dL (60-99); HDL Cholesterol 42 mg/dL (>40); LDL Cholesterol Calculated 60 mg/dL (<100); Potassium 3.9 mmol/L (3.3-5.1); Sodium 139 mmol/L (135-145); Total Protein 7.4 g/dL (6.5-8.0); Triglycerides 287 mg/dL (<150)
[2024-07-18 14:09] LABS: Vitamin B12 667 pg/mL (200-900)
[2024-07-22 14:17] LABS: Vitamin D 25-OH, D2 <4 ng/mL; Vitamin D 25-OH, D3 30 ng/mL; Vitamin D 25-OH, Total 30 ng/mL (30-100)
== END 2024-07-18 09:44 | disposition home or self-care (01) ==
LOC: HO.HMGCLDS 09:43
PROVIDERS: PCP Internal Medicine; Visit Provider Internal Medicine
DX: I10 Essential (primary) hypertension (principal); E78.9 Disorder of lipoprotein metabolism, unspecified; J43.8 Other emphysema; R73.01 Impaired fasting glucose; A69.20 Lyme disease, unspecified
CPT/HCPCS: 36415; 80053; 80061; 82306; 82607; 83036; 85025

== ENCOUNTER 2024-07-20 09:43 | Outpatient (AMB) | payer MEDICARE, SELFPAY ==
[2024-07-20 09:58] VITALS: BP 136/84; PULSE 67; O2SAT 96; BMI 29.0
--- NOTE | 2024-07-20 09:58 | A.OFFPC_ITS ---
Vital Signs 07/20/24 09:58 Height 5 ft 7 in Weight 185 lb BMI 29.0 BP 136/84 Blood Pressure Location Lt brachial Position Sitting Pulse 67 Pulse Source Pulse Oximeter Pulse Oximetry (%) 96 Oxygen Delivery Method Room Air Intake Visit Reasons: 4M F/U Allergies codeine Adverse Reaction (Unknown, Verified 07/20/24 10:01) severe headaches Medication List - Last Reconciled 07/20/24 by Chandler Brand MD atenolol 50 mg PO DAILY 90 days atorvastatin 10 mg PO DAILY 90 days doxycycline hyclate 100 mg PO BID 30 days lisinopril 5 mg (1/2 x 10 mg) PO DAILY 90 days tiotropium bromide 2.5 mcg/actuation (Spiriva Respimat) 2 puffs inhalation DAILY 90 days Tobacco use date assessed: 07/20/24 Fall risk assessment: No Falls in past year Last assessed Fall Risk: 07/20/24 Dental Screening Dental Screen Date: 07/20/24 Did you have a dental visit in the last 12 months?: No Did you have a dental problem in the last 6 months where you did not have access to dental care?: No Was dental information given to patient?: Patient declined HPI 4M F/U HPI Details History of Present Illness - The patient is a 73-year-old female pr esenting with a regular follow-up for chronic conditions. - Hypertension is managed with stable re adings of 136/84 mmHg, slightly elevated but acceptable for the patient. - Breathing has been stable with no COPD exacerbations since March. - Completed treatment for Lyme Disease w ith a 30-day Doxycycline regimen, with no further treatment required. - History of urinary tract infections sh ows improvement, with over a year free of episodes, maintained with daily cranberry supplementation. - Prediabetic status confirmed with a fa sting glucose of 102 mg/dL and an A1c of 5.5%, managing through dietary choices and regular activity. Problem List - Essential Hypertension - Chronic Obstructive Pulmonary Disease (COPD) - Urinary Tract Infections (history of, currently managed) - Lyme Disease (completed treatment) - Prediabetes Medications - Atenolol 50 mg daily for hypertension - Lisinopril 5 mg daily for hypertension - Atorvastatin 10 mg daily for hyperlipi demia - Doxycycline (completed 30-day course) for Lyme Disease - Cranberry supplementation for urinary tract infection prevention Diagnostic results - Labs: - Complete blood count (CBC): No rmal, no anemia - Kidney function tests: Normal - Fasting glucose: 102 mg/dL (consistent with prediabetes) - Hemoglobin A1c: 5.5% (normal range) - Liver enzymes: Normal - Cholesterol: Good levels, no dyslipide moody - Vitamin B12: Normal - Vitamin D: Results pending; previously low in February Review of Systems - Gastrointestinal: Denies problems with bowel movements. - Respiratory: Denies shortness of breat h. - Genitourinary: Denies recent urinary t ract infections. - Cardiovascular: Denies chest pain and ankle swelling. - General: Denies nausea, vomiting; repo rts weight loss. neurological: No headaches no dizziness ear nose throat: No sore throat no hearing difficulty no ear pain endocrine: No polyuria polydipsia no heat intolerance genitourinary: No dysuria skin: No new complaints Physical Exam general: No acute distress HEENT: No acute findings neck: Supple respiratory system: Able to talk in full sentences, no audible wheeze no stridor cardiovascular: S1-S2 gastrointestinal: No pain extremities: No swelling of ankles PROGRAM ANALYST: Alert awake oriented x3 motor sensory intact skin: Normal turgor Patient Instructions - Continue taking prescribed medications as directed. - Take vitamin D supplements daily to co rrect deficiency. - Maintain current diet and lifestyle to manage prediabetes. - Schedule next follow-up appointment in October. - Keep an eye on weight loss, though cur rently stable and without concern. [facility] Medical History Recurrent UTI COPD (chronic obstructive pulmonary disease) Lipid disorder Hypertension, essential Surgical History Hx of colonoscopy History of total hysterectomy History of tubal ligation History of acoustic neuroma Family History Father Brain tumor Diabetes mellitus Mother Colon cancer Alzheimer's disease Maternal Grandmother Unknown family medical history Maternal Grandfather Unknown family medical history Paternal Grandmother No problems noted. Paternal Grandfather No problems noted. Brother No problems noted. Son No problems noted. Daughter No problems noted. Son Back problem Social History Housing: Other (mobile home) Alcohol intake: current Alcohol intake frequency: does not drink Alcohol type: wine Patient Tobacco Use Status: Never used Tobacco e-Cigarette/Vaping Use: Never Used service: No Current occupational status: retired Cognitive needs: No Hearing needs: No Vision needs: Yes Questionnaire PHQ-9 Over the last 2 weeks, how often have you been bothered by any of the following problems? 1. Little interest or pleasure in doing things: not at all 2. Feeling down, depressed, or hopeless: not at all 3. Trouble falling or staying asleep, or sleeping too much: more than half the days 4. Feeling tired or having little energy: several days 5. Poor appetite or overeating: not at all 6. Feeling bad about yourself - or that you are a failure or have let yourself or your family down: not at all 7. Trouble concentrating on things, such as reading the newspaper or watching television: not at all 8. Moving or speaking so slowly that other people could have noticed. Or the opposite - being so fidgety or restless that you have been moving around a lot more than usual: not at all 9. Thoughts that you would be better off or of hurting yourself in some way: not at all Total score: 3 Depression Screening Interpretation: Negative Depression Screening Done: Yes 19925 - PHQ-9 Billing: Yes Source: Developed by Drs. Ángel Zhong, Anjana Lemons, Haile Puri and colleagues, with an educational maya from [employer]. Thrive Questionnaire Date Thrive assessed: 07/20/24 I am a: Patient What is your living situation today?: I have a steady place to live Within the past 12 months, did the food you bought not last and you didn't have the money to get more?: Never true Within the past 12 months, did you worry whether your food would run out before you got money to buy more?: Never true Do you have trouble paying for medicines?: No Do you have trouble getting transportation to medical appointments?: No Do you have trouble paying your heating and electricity bill?: No Do you have trouble taking care of your child, family member or friend?: No Do you have trouble with day-to-day activities such as bathing, preparing meals, shopping, managing finances, etc.?: No Are you currently unemployed and looking for a job?: No Are you interested in more education?: No Please select the resources that you would like help with: None Currently or been in a relationship where the following occur: No concerns reported THRIVE Score: 0 AUDIT C Alcohol Use Questionnaire (AUDIT-C) 1. How often do you have a drink containing alcohol?: Monthly or less 2. How many drinks containing alcohol do you have on a typical day when you are drinking?: 1 or 2 3. How often do you have six or more drinks on one occasion?: Never Total Score: 1 Score Reviewed/Action Taken: Yes MIGUEL-7 AMB Questionnaire MIGUEL-7 Date MIGUEL - 7 assessed: 07/20/24 Feeling nervous, anxious, or on edge: 0 = Not at all Not being able to stop or control worryin = Not at all Worrying too much about different things: 0 = Not at all Trouble relaxin = Not at all Being so restless that it is hard to sit still: 0 = Not at all Becoming easily annoyed or irritable: 0 = Not at all Feeling afraid as if something awful might happen: 0 = Not at all Total MIGUEL-7 score (0-4 normal; 5-9 mild; 10-14 moderate; 15-21 severe): 0 Source: Developed by Drs. Ángel Zhong, Anjana Lemons, Haile Puri and colleagues, with an educational maya from [employer]. MIGUEL-7 Assessment Billing MIGUEL-7 Assessment Tool: MIGUEL-7 Assessment 53690 Physical exam (Primary Care) Vital Signs: Last Vital Signs Pulse 67 07/20/24 09:58 BP 136/84 07/20/24 09:58 Pulse Ox 96 07/20/24 09:58 Oxygen Delivery Method Room Air 07/20/24 09:58 BMI result Body Mass Index 29.0 Tobacco/Smoking Status: Tobacco use Status Tobacco use date assessed 07/20/24 07/20/24 10:03 Patient Tobacco Use Status Never used Tobacco 07/20/24 10:03 e-Cigarette/Vaping Use Never Used 07/20/24 10:03 PHQ-9: PHQ-9 Score PHQ-9: Total score 3 07/20/24 10:15 Depression Screening Interpretation: Negative Thrive Assessment: Date of Thrive Assessment Date Thrive assessed 07/20/24 07/20/24 10:03 Currently or been in a relationship where the following occur: No concerns reported Coding Level of Care Code Est Pt Level 3 (32502) Complex EM visit Add On G2211 Diagnoses Hypertension, essential I10 Lipid disorder E78.9 Other emphysema J43.8 COPD type: emphysema Emphysema type: other Impaired fasting blood sugar R73.01 Additional Codes MIGUEL-7 Assessment Billing - MIGUEL-7 Assessment Tool: MIGUEL-7 Assessment 53544 ([id number]) PHQ-9 - 06145 - PHQ-9 Billing: Yes ([id number]) Assessment & Plan Assessment & Plan (1) Hypertension, essential: Code(s): I10 - Essential (primary) hypertension Category: Medical (2) Lipid disorder: Code(s): E78.9 - Disorder of lipoprotein metabolism, unspecified Category: Medical (3) COPD (chronic obstructive pulmonary disease): Code(s): J44.9 - Chronic obstructive pulmonary disease, unspecified Category: Medical Qualifiers: COPD type: emphysema Emphysema type: other Qualified Code(s): J43.8 - Other emphysema (4) Impaired fasting blood sugar: Code(s): R73.01 - Impaired fasting glucose Category: Medical Plan History of Present Illness - The patient is a 73-year-old female presenting with a regular follow-up for chronic conditions. - Hypertension is managed with stable readings of 136/84 mmHg, slightly elevated but acceptable for the patient. - Breathing has been stable with no COPD exacerbations since March. - Completed treatment for Lyme Disease with a 30-day Doxycycline regimen, with no further treatment required. - History of urinary tract infections shows improvement, with over a year free of episodes, maintained with daily cranberry supplementation. - Prediabetic status confirmed with a fasting glucose of 102 mg/dL and an A1c of 5.5%, managing through dietary choices and regular activity. Problem List - Essential Hypertension - Chronic Obstructive Pulmonary Disease (COPD) - Urinary Tract Infections (history of, currently managed) - Lyme Disease (completed treatment) - Prediabetes Medications - Atenolol 50 mg daily for hypertension - Lisinopril 5 mg daily for hypertension - Atorvastatin 10 mg daily for hyperlipidemia - Doxycycline (completed 30-day course) for Lyme Disease - Cranberry supplementation for urinary tract infection prevention Diagnostic results - Labs: - Complete blood count (CBC): Normal, no anemia - Kidney function tests: Normal - Fasting glucose: 102 mg/dL (consistent with prediabetes) - Hemoglobin A1c: 5.5% (normal range) - Liver enzymes: Normal - Cholesterol: Good levels, no dyslipidemia - Vitamin B12: Normal - Vitamin D: Results pending; previously low in February Review of Systems - Gastrointestinal: Denies problems with bowel movements. - Respiratory: Denies shortness of breath. - Genitourinary: Denies recent urinary tract infections. - Cardiovascular: Denies chest pain and ankle swelling. - General: Denies nausea, vomiting; reports weight loss. neurological: No headaches no dizziness ear nose throat: No sore throat no hearing difficulty no ear pain endocrine: No polyuria polydipsia no heat intolerance genitourinary: No dysuria skin: No new complaints Physical Exam general: No acute distress HEENT: No acute findings neck: Supple respiratory system: Able to talk in full sentences, no audible wheeze no stridor cardiovascular: S1-S2 gastrointestinal: No pain extremities: No swelling of ankles PROGRAM ANALYST: Alert awake oriented x3 motor sensory intact skin: Normal turgor Patient Instructions - Continue taking prescribed medications as directed. - Take vitamin D supplements daily to correct deficiency. - Maintain current diet and lifestyle to manage prediabetes. - Schedule next follow-up appointment in October. - Keep an eye on weight loss, though currently stable and without concern.
== END 2024-07-20 10:15 | disposition home or self-care (01) ==
PROVIDERS: PCP Internal Medicine; Visit Provider Internal Medicine
DX: I10 Essential (primary) hypertension (principal); E78.9 Disorder of lipoprotein metabolism, unspecified; J43.8 Other emphysema; R73.01 Impaired fasting glucose

== ENCOUNTER → 2024-07-20 09:43 | Outpatient (BNVA) | payer MEDICARE, SELFPAY | PROVIDERS: PCP Internal Medicine; Visit Provider Internal Medicine | DX: I10 Essential (primary) hypertension (principal); J43.8 Other emphysema; E78.9 Disorder of lipoprotein metabolism, unspecified; R73.01 Impaired fasting glucose | CPT/HCPCS: 96127; 99212 ==

== ENCOUNTER 2024-10-19 09:22 | Outpatient (AMB) | payer MEDICARE, SELFPAY ==
--- NOTE | 2024-10-19 09:25 | A.OFFPC_ITS ---
Vital Signs 10/19/24 09:28 Height 5 ft 7 in Weight 186 lb 8 oz BMI 29.2 BP 126/68 Blood Pressure Location Rt brachial Position Sitting Pulse 72 Pulse Source Pulse Oximeter Pulse Oximetry (%) 97 Oxygen Delivery Method Room Air Intake Visit Reasons: 3m follow up Allergies codeine Adverse Reaction (Unknown, Verified 10/19/24 09:31) severe headaches Medication List - Last Reconciled 10/19/24 by Chandler Brand MD atenolol 50 mg PO DAILY 90 days atorvastatin 10 mg PO DAILY 90 days doxycycline hyclate 100 mg PO BID 30 days lisinopril 5 mg (1/2 x 10 mg) PO DAILY 90 days tiotropium bromide 2.5 mcg/actuation (Spiriva Respimat) 2 puffs inhalation DAILY 90 days Tobacco use date assessed: 10/19/24 Fall risk assessment: No Falls in past year Last assessed Fall Risk: 10/19/24 Dental Screening Dental Screen Date: 10/19/24 Did you have a dental visit in the last 12 months?: No Did you have a dental problem in the last 6 months where you did not have access to dental care?: No Was dental information given to patient?: No HPI 3m follow up HPI Details History - The patient is a 73-year-old female pr esenting with a regular follow-up - Currently taking atenolol, atorvastati n, lisinopril, and Spiriva reports no new adverse developments. - Blood pressure is well-controlled at 1 26 mmHg. - Received tetanus immunization in ; planning bilateral cataract surgery with preparatory appointment scheduled on December 19. - July's labs reflect normal kidney f unction, liver enzymes, stable electrolyte levels, prediabetes (currently stable), and well-managed cholesterol levels. - Vitamin D was previously low but is no rmalized with ongoing supplementation; B12 levels are sufficient. - No immediate medication refills requir ed due to automatic plan. Problem List - Essential Hypertension - Prediabetes - Hyperlipidemia Patient Instructions - Continue with current medication regim en: atenolol, atorvastatin, lisinopril, and Cepreva. - Maintain careful diet and lifestyle to manage prediabetes. - Keep up with Vitamin D supplementation as previously directed. - Attend the scheduled cataract surgery consult on December 19. - Be prepared for upcoming lab tests in December with fasting if applicable. Review of Systems - General: No fever no chills - Neurological: No headaches no dizziness - Ear nose throat: No sore throat no hearing difficulty no ear pain - Cardiovascular: No syncope, no chest pain, no palpitations - Gastrointestinal: No nausea vomiting or diarrhea - Endocrine: No polyuria polydipsia no heat intolerance - Genitourinary: No dysuria , no blood in urine Physical Exam General: No acute distress HEENT: No acute findings Neck: Supple Respiratory system: Lungs are clear, able to talk in full sentences, no audible wheeze Cardiovascular: S1-S2 regular in rate and rhythm, heart looks fine Gastrointestinal: No pain, no nausea or vomiting Extremities: No new findings, no swelling SAND DRIER: Alert awake oriented x3 motor sensory intact Skin: Normal turgor [facility] Medical History Recurrent UTI COPD (chronic obstructive pulmonary disease) Lipid disorder Hypertension, essential Surgical History Hx of colonoscopy History of total hysterectomy History of tubal ligation History of acoustic neuroma Family History Father Brain tumor Diabetes mellitus Mother Colon cancer Alzheimer's disease Maternal Grandmother Unknown family medical history Maternal Grandfather Unknown family medical history Paternal Grandmother No problems noted. Paternal Grandfather No problems noted. Brother No problems noted. Son No problems noted. Daughter No problems noted. Son Back problem Social History Housing: Other (mobile home) Alcohol intake: current Alcohol intake frequency: does not drink Alcohol type: wine Patient Tobacco Use Status: Never used Tobacco e-Cigarette/Vaping Use: Never Used service: No Current occupational status: retired Cognitive needs: No Hearing needs: No Vision needs: Yes Questionnaire PHQ-9 Over the last 2 weeks, how often have you been bothered by any of the following problems? 53255 - PHQ-9 Billing: Patient declined-do not bill Source: Developed by Drs. Ángel Zhong, Anjana Lemons, Haile Puri and colleagues, with an educational maya from [employer]. Thrive Questionnaire Date Thrive assessed: 07/20/24 AUDIT C Alcohol Use Questionnaire (AUDIT-C) 1. How often do you have a drink containing alcohol?: Monthly or less 2. How many drinks containing alcohol do you have on a typical day when you are drinking?: 1 or 2 3. How often do you have six or more drinks on one occasion?: Never Total Score: 1 Score Reviewed/Action Taken: Yes MIGUEL-7 AMB Questionnaire MIGUEL-7 Date MIGUEL - 7 assessed: 07/20/24 Source: Developed by Drs. Ángel Zhong, Anjana Lemons, Haile Puri and colleagues, with an educational maya from [employer]. Physical exam (Primary Care) Vital Signs: Last Vital Signs Pulse 72 10/19/24 09:28 BP 126/68 10/19/24 09:28 Pulse Ox 97 10/19/24 09:28 Oxygen Delivery Method Room Air 10/19/24 09:28 BMI result Body Mass Index 29.2 Tobacco/Smoking Status: Tobacco use Status Tobacco use date assessed 10/19/24 10/19/24 09:32 Patient Tobacco Use Status Never used Tobacco 10/19/24 09:25 e-Cigarette/Vaping Use Never Used 10/19/24 09:25 Thrive Assessment: Date of Thrive Assessment Date Thrive assessed 07/20/24 10/19/24 09:25 Coding Level of Care Code Est Pt Level 3 (90696) Complex EM visit Add On G2211 Diagnoses Hypertension, essential I10 Lipid disorder E78.9 Other emphysema J43.8 COPD type: emphysema Emphysema type: other Impaired fasting blood sugar R73.01 Assessment & Plan Assessment & Plan (1) Hypertension, essential: Code(s): I10 - Essential (primary) hypertension Category: Medical (2) Lipid disorder: Code(s): E78.9 - Disorder of lipoprotein metabolism, unspecified Category: Medical (3) COPD (chronic obstructive pulmonary disease): Code(s): J44.9 - Chronic obstructive pulmonary disease, unspecified Category: Medical Qualifiers: COPD type: emphysema Emphysema type: other Qualified Code(s): J43.8 - Other emphysema (4) Impaired fasting blood sugar: Code(s): R73.01 - Impaired fasting glucose Category: Medical Plan History - The patient is a 73-year-old female presenting with a regular follow-up - Currently taking atenolol, atorvastatin, lisinopril, and Spiriva reports no new adverse developments. - Blood pressure is well-controlled at 126 mmHg. - Received tetanus immunization in August; planning bilateral cataract surgery with preparatory appointment scheduled on December 19. - July's labs reflect normal kidney function, liver enzymes, stable electrolyte levels, prediabetes (currently stable), and well-managed cholesterol levels. - Vitamin D was previously low but is normalized with ongoing supplementation; B12 levels are sufficient. - No immediate medication refills required due to automatic plan. Problem List - Essential Hypertension - Prediabetes - Hyperlipidemia Patient Instructions - Continue with current medication regimen: atenolol, atorvastatin, lisinopril, and Cepreva. - Maintain careful diet and lifestyle to manage prediabetes. - Keep up with Vitamin D supplementation as previously directed. - Attend the scheduled cataract surgery consult on December 19. - Be prepared for upcoming lab tests in December with fasting if applicable. Orders: Orders Comprehensive [place]. Panel Fast 2 Months E66.09 - Other obesity due to excess calories, E78.9 - Disorder of lipoprotein metabolism, unspecified, I10 - Essential (primary) hypertension, J43.8 - Other emphysema, R73.01 - Impaired fasting glucose, Z68.30 - Body mass index [BMI] 30.0-30.9, adult Hemoglobin A1c 2 Months E66.09 - Other obesity due to excess calories, E78.9 - Disorder of lipoprotein metabolism, unspecified, I10 - Essential (primary) hypertension, J43.8 - Other emphysema, R73.01 - Impaired fasting glucose, Z68.30 - Body mass index [BMI] 30.0-30.9, adult Complete Blood Count Auto Diff 2 Months E66.09 - Other obesity due to excess calories, E78.9 - Disorder of lipoprotein metabolism, unspecified, I10 - Essential (primary) hypertension, J43.8 - Other emphysema, R73.01 - Impaired fasting glucose, Z68.30 - Body mass index [BMI] 30.0-30.9, adult Lipid Panel 2 Months E66.09 - Other obesity due to excess calories, E78.9 - Disorder of lipoprotein metabolism, unspecified, I10 - Essential (primary) hypertension, J43.8 - Other emphysema, R73.01 - Impaired fasting glucose, Z68.30 - Body mass index [BMI] 30.0-30.9, adult Medications: Discontinued doxycycline hyclate Discontinued Reason: Doctor's Order 100 mg PO BID 30 days 60 caps 0RF
[2024-10-19 09:28] VITALS: BP 126/68; PULSE 72; O2SAT 97; BMI 29.2
--- OUTSIDE RECORDS SUMMARY | 2024-10-19 10:05 | XMS_ITS | Clinical Summary ---
Author Organization [facility] Address [address] [place] [phone] Phone Care Team Providers Care Web Services Architect Name Role Phone Chandler Brand MD Primary Care Provider [phone] Surgical History Surgery Date Site/Laterality Comments HYSTERECTOMY STEREOTACTIC CORE BIOPSY Right BREAST CYST EXCISION Right Social History Tobacco Use Types Packs/Day Years Used Date Smoking Tobacco: Never Assessed Comments No Sex and Gender Information Value Date Recorded Sex Assigned at Not on file Legal Sex Female 1:09 AM EST Gender Identity Not on file Sexual Orientation Not on file Obstetrics History Para Term AB IAB SAB Ectopic Multiple Livin g Live Births 3 Last Filed Vital Signs Vital Sign Reading Time Taken Comments Blood Pressure - - Pulse - - Temperature - - Respiratory Rate - - Oxygen Saturation - - Inhaled Oxygen Concentration - - Weight 83.9 kg (185 lb) 06/20/2024 9:26 AM EST Height 170.2 cm (5' 7 ) 06/20/2024 9:26 AM EST Body Mass Index 28.98 06/20/2024 9:26 AM EST Plan of Treatment Health Maintenance Due Date Last Done Comments DTaP,Tdap,and Td Vaccines (1 - Tdap) 11[birth year]20/1969 Colorectal Cancer Screening: Colonoscopy 06/15/2022 Depression Screening 06/15/2022 Falls Risk Assessment 06/15/2022 Hepatitis C Screening 06/15/2022 Medicare Annual Wellness Visit 06/15/2022 Osteoporosis Screening (Bone Density Screening) 06/15/2022 Social Influencers of Health Screening 06/15/2022 Pneumococcal Vaccine: 50+ Years Completed 06/18/2018, 04/02/2016 Zoster Vaccines Completed 05/27/2022, 02/24/2022 RSV Immunization Adult Patients Completed 03/18/2023 COVID-19 Vaccine Completed 03/19/2024, , 03/26/2022, Additional history exists Influenza Vaccine Completed 03/19/2024, , 03/24/2022, Additional history exists Breast Cancer Screening Discontinued 06/20/20, 06/17/2023, 05/05/2022, Additional history exists HIB Vaccines Aged Out No longer eligi ble based on patient's age to complete this topic HPV Vaccines Aged Out No longer eligi ble based on patient's age to complete this topic Hepatitis A Vaccines Aged Out No long er eligible based on patient's age to complete this topic Hepatitis B Vaccines Aged Out No long er eligible based on patient's age to complete this topic IPV Vaccines Aged Out No longer eligi ble based on patient's age to complete this topic MMR Vaccines Aged Out No longer eligi ble based on patient's age to complete this topic Meningococcal ACWY Vaccine Aged Out N o longer eligible based on patient's age to complete this topic Meningococcal B Vaccine Aged Out No l onger eligible based on patient's age to complete this topic RSV Immunization Patients Under 20 months Aged Out No longer eligible based on patient's age to complete this topic Varicella Vaccines Aged Out No longer eligible based on patient's age to complete this topic Procedures Procedure Name Priority Date/Time Associated Diagnosis Comments MG MAMMO DIGITAL SCREENING W DEREK BILAT Routine 06/20/2024 9:36 AM EST Encounter for screening mammogram for breast cancer from Last 3 Months or Most Recently Relevant to Health Maintenance Results * MG Mammo Digital Screening w Derek bilat (06/20/2024 9:36 AM EST) Anatomical Region Laterality Modality Breast Bilateral Mammography 06/20/2024 4:03 PM EST Impressions 06/20/2024 4:10 PM EST No mammographic evidence of malignancy. ?? No suspicious interval change. A negative mammogram in the presence of a clinically suspicious palpable abnormality does not preclude the possibility of malignancy or alter the indications for biopsy. ASSESSMENT: ?? BI-RADS 1: NEGATIVE RECOMMENDATION(S): 1: Routine screening mammogram BILATERAL in 1 year. -------- FINAL REPORT -------- Dictated By: Duke Sarmiento Dictated Date: 06/20/2024 16:03 ET Assigned Physician: Duke Sarmiento Reviewed and Electronically Signed By: Duke Sarmiento Signed Date: 06/20/2024 16:10 ET Workstation ID: [id number] Transcribed By: Self Edit Transcribed Date: 06/20/2024 16:03 ET Narrative 06/20/2024 4:10 PM EST EXAM: ??SCREENING MAMMOGRAPHY, BILATERAL HISTORY: ??SCREENING. ??Scar marker at the site of incision upper outer right breast for reportedly benign process. COMPARISON: ??06/17/2023, 05/05/2022, 05/02/2021, 04/27/2020 TECHNIQUE: Synthesized CC and MLO projections of each breast. ??Tomosynthesis of each breast in the CC and MLO projections. ADDITIONAL IMAGING: None Computer-aided detection was employed with the iCAD ??profound AI 3-D. TISSUE DENSITY: There are scattered areas of fibroglandular density. (BI-RADS category B) FINDINGS: RIGHT BREAST: No suspicious mass. No suspicious calcification. No distortion. ?? No additional suspicious right breast findings There are circumscribed round densities in or on the skin of the right axilla. LEFT BREAST: No suspicious mass. No suspicious calcification. No distortion. ?? No additional suspicious left breast findings There are circumscribed round densities in or on the skin of the left axilla. Procedure Note Duke Sarmiento MD - 06/20/2024 EXAM: SCREENING MAMMOGRAPHY, BILATERAL HISTORY: SCREENING. Scar marker at the site of incision upper outerright breast for reportedly benign process. COMPARISON: 06/17/2023, 05/05/2022, 05/02/2021, 04/27/2020 TECHNIQUE: Synthesized CC and MLO projections of each breast.Tomosynthesis of each breast in the CC and MLO projections. ADDITIONAL IMAGING: None Computer-aided detection was employed with the iCAD profound AI 3-D. TISSUE DENSITY: There are scattered areas of fibroglandular density.(BI-RADS category B) FINDINGS: RIGHT BREAST: No suspicious mass. No suspicious calcification. No distortion. Noadditional suspicious right breast findings There are circumscribed round densities in or on the skin of the rightaxilla. LEFT BREAST: No suspicious mass. No suspicious calcification. No distortion. Noadditional suspicious left breast findings There are circumscribed round densities in or on the skin of the leftaxilla. IMPRESSION: No mammographic evidence of malignancy. No suspicious interval change. A negative mammogram in the presence of a clinically suspicious palpableabnormality does not preclude the possibility of malignancy or alter theindications for biopsy. ASSESSMENT: BI-RADS 1: NEGATIVE RECOMMENDATION(S): 1: Routine screening mammogram BILATERAL in 1 year. -------- FINAL REPORT -------- Dictated By: Duke Sarmiento Dictated Date: 06/20/2024 16:03 ET Assigned Physician: Duke Sarmiento Reviewed and Electronically Signed By: Duke Sarmiento Signed Date: 06/20/2024 16:10 ET Workstation ID: [id number] Transcribed By: Self Edit Transcribed Date: 06/20/2024 16:03 ET us Self Referral Sppl IMG BI PROCEDURES Final Resul t from Last 3 Months or Most Recently Relevant to Health Maintenance Insurance MEDICAID - [place] [employer] MEDICARE Care Teams Web Services Architect Relationship Specialty Start Date End Date Chandler Brand MD [address] [place] [phone] PCP - General Internal Medicine 06/06/19
== END 2024-10-19 09:48 | disposition home or self-care (01) ==
LOC: HO.HMCC 09:22
PROVIDERS: PCP Internal Medicine; Visit Provider Internal Medicine
DX: I10 Essential (primary) hypertension (principal); E78.9 Disorder of lipoprotein metabolism, unspecified; J43.8 Other emphysema; R73.01 Impaired fasting glucose

== ENCOUNTER → 2024-10-19 09:22 | Outpatient (BNVA) | payer MEDICARE, SELFPAY | PROVIDERS: PCP Internal Medicine; Visit Provider Internal Medicine | DX: I10 Essential (primary) hypertension (principal); E78.9 Disorder of lipoprotein metabolism, unspecified; J43.8 Other emphysema; R73.01 Impaired fasting glucose | CPT/HCPCS: 99212 ==

== ENCOUNTER 2024-12-07 09:38 | Outpatient (REF) | payer MEDICARE, SELFPAY ==
--- OUTSIDE RECORDS SUMMARY | 2024-12-07 10:20 | XMS_ITS | Clinical Summary ---
Author Organization [facility] Address [address] [place] [phone] Phone Care Team Providers Care Bathing Suit Maker Name Role Phone Chandler Brand MD Primary Care Provider Surgical History Surgery Date Site/Laterality Comments HYSTERECTOMY [...] DTaP,Tdap,and Td Vaccines (1 - Tdap) 11[birth year]20/1969 Depression Screening 06/15/2022 Falls Risk Assessment 06/15/2022 Hepatitis C Screening 06/15/2022 Medicare Annual Wellness Visit 06/15/2022 Osteoporosis Screening (Bone Density Screening) 06/15/2022 Social Influencers of Health Screening 06/15/2022 COVID-19 Vaccine ( season) 2024 03/19/2024, 03/31/2023, 03/26/2022, Additional history exists Pneumococcal Vaccine: 50+ Years Completed 06/18/2018, 04/02/2016 Zoster Vaccines Completed 05/27/2022, 02/24/2022 RSV Immunization Adult Patients Completed 03/18/2023 Influenza Vaccine Completed 03/19/2024, , 03/24/2022, Additional [...] Signed Date: 06/20/2024 16:10 ET Workstation ID: [id number] Transcribed By: Self Edit Transcribed Date: 06/20/2024 [...] Signed Date: 06/20/2024 16:10 ET Workstation ID: [id number] Transcribed By: Self Edit Transcribed Date: 06/20/2024 16:03 ET us Self Referral Sppl IMG BI PROCEDURES Final Resul t from Last 3 Months or Most Recently Relevant to Health Maintenance Insurance [place] - [place] [employer] MEDICARE Care Teams Bathing Suit Maker Relationship Specialty Start Date End Date Chandler Brand MD [address] [place] [phone] PCP - General Internal Medicine 06/06/19
[2024-12-07 13:24] LABS: MANUAL DIFF FLAG NO
[2024-12-07 13:31] LABS: Basophils Percent Auto 0.7 % (0-2); Eosinophils Absolute Auto 0.2 X10*3/uL (0.0-0.4); Eosinophils Percent Auto 3.5 % (0-4); Hematocrit 41.5 % (37.0-47.0); Hemoglobin 13.3 g/dl (12.0-16.0); Lymphocytes Absolute Auto 1.5 X10*3/uL (1.2-4.9); Lymphocytes Percent Auto 35.8 % (20-40); Mean Corpuscular Volume 93.7 fL (80.0-98.0); Mean Platelet Volume 11.6 fL (9.4-12.3); Monocytes Absolute Auto 0.5 X10*3/uL (0.1-1.2); Monocytes Percent Auto 10.5 % (2-11); Neutrophils Absolute Auto 2.1 x10*3/uL (2.0-8.3); Neutrophils Percent Auto 49.5 % (45-73); Platelet Count 238 X10*3/uL (160-400); Red Blood Count 4.43 X10*6/uL (4.20-5.50); Red Cell Distribution Width 12.1 % (11.0-16.0); White Blood Count 4.3 X10*3/uL (4.8-10.8)
[2024-12-07 13:41] LABS: Estimated Average Glucose 114 mg/dL; Hemoglobin A1C 130.7527 umol/L; Hemoglobin A1c % 5.6 % (<6.0); Total Hemoglobin (HGBA1C) 3492.4529 umol/L
[2024-12-07 13:51] LABS: Alanine Aminotransferase 18 U/L (0-31); Albumin Level 4.5 g/dL (3.5-5.0); Alkaline Phosphatase 49 U/L (39-117); Anion Gap 11 (12-20); Aspartate Amino Transferase 23 U/L (5-31); Bilirubin Total 0.5 mg/dL (0.0-1.0); Blood Urea Nitrogen 12 mg/dL (9-16); Calcium 9.4 mg/dL (8.4-10.2); Carbon Dioxide 27 mmol/L (22-29); Chloride 105 mmol/L (96-108); Cholesterol 167 mg/dL (<200); Estimated Glomerular Filt Rate > 60; Glucose Fasting 98 mg/dL (60-99); HDL Cholesterol 38 mg/dL (>40); LDL Cholesterol Calculated 65 mg/dL (<100); Potassium 4.2 mmol/L (3.3-5.1); Sodium 139 mmol/L (135-145); Total Protein 7.2 g/dL (6.5-8.0); Triglycerides 321 mg/dL (<150)
== END 2024-12-07 09:39 | disposition home or self-care (01) ==
LOC: HO.HMGCLDS 09:38
PROVIDERS: PCP Internal Medicine; Visit Provider Internal Medicine
DX: I10 Essential (primary) hypertension (principal); E78.9 Disorder of lipoprotein metabolism, unspecified; J43.8 Other emphysema; R73.01 Impaired fasting glucose; E66.09 Other obesity due to excess calories; Z68.30 Body mass index [BMI] 30.0-30.9, adult
CPT/HCPCS: 36415; 80053; 80061; 83036; 85025

== ENCOUNTER 2024-12-14 12:12 | Outpatient (AMB) | payer MEDICARE, SELFPAY ==
--- NOTE | 2024-12-14 12:16 | A.OFFPC_ITS ---
Vital Signs 12/14/24 12:17 Height 5 ft 7 in Weight 188 lb 4 oz BMI 29.5 BP 132/80 Blood Pressure Location Lt brachial Position Sitting Pulse 78 Pulse Source Pulse Oximeter Pulse Oximetry (%) 98 Oxygen Delivery Method Room Air Intake Visit Reasons: pre-op for left & right eyes cataract surgery Allergies codeine Adverse Reaction (Unknown, Verified 12/14/24 12:31) severe headaches Tobacco use date assessed: 12/14/24 Fall risk assessment: No Falls in past year Last assessed Fall Risk: 12/14/24 Dental Screening Dental Screen Date: 12/14/24 Did you have a dental visit in the last 12 months?: No Did you have a dental problem in the last 6 months where you did not have access to dental care?: No Was dental information given to patient?: Patient declined HPI pre-op for left & right eyes cataract surgery HPI Details Chief Complaint The patient is here for cataract surgery preparation and to discuss general health management. History - The patient is a 74 year old female pr esenting with the need for cataract surgery, which is scheduled for January 17 at [facility]. She reports anxiety about the procedure. - The patient has a history of essential hypertension, which is currently well- managed. - She also has a history of hyperlipidem ia with an LDL level of 65. - The patient asks about the risk of con tracting measles again, having previously had the illness in childhood. - She notes neck range limitation due to previous brain surgery right side Medical History: - Essential Hypertension - Hyperlipidemia - History of Measles in childhood - mild COPD Social History: - The patient is physically active, perf orming yard work and maintaining a garden. - She indicates a supportive family abiel kaylene with her father involved in transportation for medical appointments. Diagnostic Results: - Labs from December 07: Electrolytes normal, Kidney function intact, A1c 5.6, Liver enzymes normal, LDL 65, CBC normal, WBC 4.3, No anemia. Medications - Atenolol 50 mg for hypertension - Atorvastatin 10 mg for hyperlipidemia - Lisinopril 5 mg for hypertension Problem List - Cataract - Essential Hypertension - Hyperlipidemia - Measles (history) - Previous acoustic neuroma surgery righ t side (resulting in neck limitation) Plan During the visit, the patient was reassured about the upcoming cataract surgery and informed that the procedure typically involves numbing the eye and mild sedation to manage anxiety. She's scheduled to consult with the surgical team on Thursday before the procedure. Her hypertension is being managed effectively with atenolol, and lipid levels are under control with atorvastatin. Considering her history of measles, a blood test to evaluate immunity was discussed to determine the need for an MMR booster. Continuous monitoring of blood pressure and lipid levels was encouraged to maintain current health status. Given her active lifestyle and the limitation in neck movement due to prior surgery, no new interventions were discussed apart from planned surgery and ongoing medication a dherence. Emergency contact information for questions about the upcoming surgery was provided. Medical Decision Making The patient's cataract condition necessitates surgery to restore vision, sched uled and confirmed for January 17. Pre-operative anxiety was acknowledged, and the approach of local anesthesia with sedative use was communicated. Her chronic conditions of hypertension and hyperlipidemia are well-managed through medication, as supported by favorable lab results. Considering her previous measles infection, the risk of re-infection due to waning immunity was explained, with a recommendation for an antibody check to guide booster administration. Patient is stable for cataract surgery [facility] Medical History Recurrent UTI COPD (chronic obstructive pulmonary disease) Lipid disorder Hypertension, essential Surgical History Hx of colonoscopy History of total hysterectomy History of tubal ligation History of acoustic neuroma Family History Father Brain tumor Diabetes mellitus Mother Colon cancer Alzheimer's disease Maternal Grandmother Unknown family medical history Maternal Grandfather Unknown family medical history Paternal Grandmother No problems noted. Paternal Grandfather No problems noted. Brother No problems noted. Son No problems noted. Daughter No problems noted. Son Back problem Social History Housing: Other (mobile home) Alcohol intake: current Alcohol intake frequency: does not drink Alcohol type: wine Patient Tobacco Use Status: Never used Tobacco e-Cigarette/Vaping Use: Never Used service: No Current occupational status: retired Cognitive needs: No Hearing needs: No Vision needs: Yes Questionnaire Thrive Questionnaire Date Thrive assessed: 07/20/24 AUDIT C Alcohol Use Questionnaire (AUDIT-C) 1. How often do you have a drink containing alcohol?: Monthly or less 2. How many drinks containing alcohol do you have on a typical day when you are drinking?: 1 or 2 3. How often do you have six or more drinks on one occasion?: Never Total Score: 1 Score Reviewed/Action Taken: Yes MIGUEL-7 AMB Questionnaire MIGUEL-7 Date MIGUEL - 7 assessed: 07/20/24 Source: Developed by Drs. Ángel Zhong, Anjana Lemons, Haile Puri and colleagues, with an educational maya from [employer]. Review of Systems Const Denies chills and Denies fever(s) ENT Denies epistaxis and Denies nasal discharge Card Denies chest pain Resp Denies chest congestion, Denies cough and Denies hemoptysis GI Denies diarrhea and Denies nausea Skin/Breast Denies rash Neuro Reports no additional complaints Psych Reports no additional complaints Endo Reports no additional complaints Physical exam (Primary Care) Vital Signs: Last Vital Signs Pulse 78 12/14/24 12:17 BP 132/80 12/14/24 12:17 Pulse Ox 98 12/14/24 12:17 Oxygen Delivery Method Room Air 12/14/24 12:17 BMI result Body Mass Index 29.5 Tobacco/Smoking Status: Tobacco use Status Tobacco use date assessed 12/14/24 12/14/24 12:33 Patient Tobacco Use Status Never used Tobacco 12/14/24 12:17 e-Cigarette/Vaping Use Never Used 12/14/24 12:17 Thrive Assessment: Date of Thrive Assessment Date Thrive assessed 07/20/24 12/14/24 12:17 Const General: cooperative, comfortable and no acute distress Orientation/consciousness: patient oriented x3 HENMT Head: Yes normocephalic Eyes General: appearance normal, both eyes and all related structures Neck Other: Limited range of motion in extension chronic Resp Effort & Inspection: normal respiratory effort, no cough and no stridor Cardio Rhythm: regular rhythm Heart sounds: S1 normal heart sound present and S2 normal heart sound present Skin General skin exam: turgor normal Neuro General: patient oriented x3, tone normal and moves all extremities Extrem Right lower extremity: no edema Left lower extremity: no edema Coding Level of Care Code Est Pt Level 5 (34839) Diagnoses Pre-op evaluation Z01.818 Other age-related cataract of both eyes H25.89 Age-related cataract type: other Cataract type: age-related Hypertension, essential I10 Lipid disorder E78.9 Other emphysema J43.8 COPD type: emphysema Emphysema type: other Impaired fasting blood sugar R73.01 Neck stiffness M43.6 History of acoustic neuroma Z86.018 Time Spent (min) 40 Comment Chart reviewed, labs, medications, [id number] with the patient, coordination of care Assessment & Plan Assessment & Plan (1) Pre-op evaluation: Code(s): Z01.818 - Encounter for other preprocedural examination Category: Medical (2) Cataract, bilateral: Code(s): H26.9 - Unspecified cataract Category: Medical Qualifiers: Age-related cataract type: other Cataract type: age-related Qualified Code(s): H25.89 - Other age-related cataract (3) Hypertension, essential: Code(s): I10 - Essential (primary) hypertension Category: Medical (4) Lipid disorder: Code(s): E78.9 - Disorder of lipoprotein metabolism, unspecified Category: Medical (5) COPD (chronic obstructive pulmonary disease): Code(s): J44.9 - Chronic obstructive pulmonary disease, unspecified Category: Medical Qualifiers: COPD type: emphysema Emphysema type: other Qualified Code(s): J43.8 - Other emphysema (6) Impaired fasting blood sugar: Code(s): R73.01 - Impaired fasting glucose Category: Medical (7) Neck stiffness: Code(s): M43.6 - Torticollis Category: Medical (8) History of acoustic neuroma: Comment: 2012 Code(s): Z86.018 - Personal history of other benign neoplasm Category: Surgical Plan Chief Complaint The patient is here for cataract surgery preparation and to discuss general health management. History - The patient is a 74 year old female presenting with the need for cataract surgery, which is scheduled for January 17 at [facility]. She reports anxiety about the procedure. - The patient has a history of essential hypertension, which is currently well- managed. - She also has a history of hyperlipidemia with an LDL level of 65. - The patient asks about the risk of rena measles again, having previously had the illness in childhood. - She notes neck range limitation due to previous brain surgery right side Medical History: - Essential Hypertension - Hyperlipidemia - History of Measles in childhood - mild COPD Social History: - The patient is physically active, performing yard work and maintaining a garden. - She indicates a supportive family dynamic with her father involved in transportation for medical appointments. Diagnostic Results: - Labs from December 07: Electrolytes normal, Kidney function intact, A1c 5.6, Liver enzymes normal, LDL 65, CBC normal, WBC 4.3, No anemia. Medications - Atenolol 50 mg for hypertension - Atorvastatin 10 mg for hyperlipidemia - Lisinopril 5 mg for hypertension Problem List - Cataract - Essential Hypertension - Hyperlipidemia - Measles (history) - Previous acoustic neuroma surgery right side (resulting in neck limitation) Plan During the visit, the patient was reassured about the upcoming cataract surgery and informed that the procedure typically involves numbing the eye and mild sedation to manage anxiety. She's scheduled to consult with the surgical team on Thursday before the procedure. Her hypertension is being managed effectively with atenolol, and lipid levels are under control with atorvastatin. Considering her history of measles, a blood test to evaluate immunity was discussed to determine the need for an MMR booster. Continuous monitoring of blood pressure and lipid levels was encouraged to maintain current health status. Given her active lifestyle and the limitation in neck movement due to prior surgery, no new interventions were discussed apart from planned surgery and ongoing medication adherence. Emergency contact information for questions about the upcoming surgery was provided. Medical Decision Making The patient's cataract condition necessitates surgery to restore vision, scheduled and confirmed for January 17. Pre-operative anxiety was acknowledged, and the approach of local anesthesia with sedative use was communicated. Her chronic conditions of hypertension and hyperlipidemia are well-managed through medication, as supported by favorable lab results. Considering her previous measles infection, the risk of re-infection due to waning immunity was explained, with a recommendation for an antibody check to guide booster administration. Patient is stable for cataract surgery
[2024-12-14 12:17] VITALS: BP 132/80; PULSE 78; O2SAT 98; BMI 29.5
--- OUTSIDE RECORDS SUMMARY | 2024-12-14 12:51 | XMS_ITS | Clinical Summary ---
Author Organization [facility] Address [address] [place] [id number] Phone Care Team Providers Care Photographic Supervisor Name Role Phone Chandler Brand MD Primary Care Provider [phone] Surgical History Surgery Date Site/Laterality Comments HYSTERECTOMY [...] Signed Date: 06/20/2024 16:10 ET Workstation ID: [id number] Transcribed By: Self Edit Transcribed Date: 06/20/2024 [...] Signed Date: 06/20/2024 16:10 ET Workstation ID: [id number] Transcribed By: Self Edit Transcribed Date: 06/20/2024 16:03 ET us Self Referral Sppl IMG BI PROCEDURES Final Resul t from Last 3 Months or Most Recently Relevant to Health Maintenance Insurance MEDICAID - [place] [address] Care Teams Photographic Supervisor Relationship Specialty Start Date End Date Chandler Brand MD [address] [place] [id number] PCP - General Internal Medicine 06/06/19
== END 2024-12-14 12:48 | disposition home or self-care (01) ==
LOC: HO.HMCC 12:13
PROVIDERS: PCP Internal Medicine; Visit Provider Internal Medicine
DX: J43.8 Other emphysema (principal); H25.89 Other age-related cataract; I10 Essential (primary) hypertension; Z01.818 Encounter for other preprocedural examination; E78.9 Disorder of lipoprotein metabolism, unspecified; R73.01 Impaired fasting glucose; M43.6 Torticollis; Z86.018 Personal history of other benign neoplasm

== ENCOUNTER → 2024-12-14 12:12 | Outpatient (BNVA) | payer MEDICARE, SELFPAY | PROVIDERS: PCP Internal Medicine; Visit Provider Internal Medicine | DX: Z01.818 Encounter for other preprocedural examination (principal); H25.89 Other age-related cataract; I10 Essential (primary) hypertension; E78.9 Disorder of lipoprotein metabolism, unspecified; J43.8 Other emphysema; R73.01 Impaired fasting glucose; M43.6 Torticollis; Z86.018 Personal history of other benign neoplasm | CPT/HCPCS: 99212 ==

== ENCOUNTER 2025-02-15 09:37 | Outpatient (AMB) | payer MEDICARE, SELFPAY ==
[2025-02-15 09:41] VITALS: BP 130/80; PULSE 66; O2SAT 97; BMI 29.3
--- NOTE | 2025-02-15 09:41 | A.OFFPC_ITS ---
Vital Signs 02/15/25 09:41 Height 5 ft 7 in Weight 187 lb BMI 29.3 BP 130/80 Blood Pressure Location Lt brachial Position Sitting Pulse 66 Pulse Source Pulse Oximeter Pulse Oximetry (%) 97 Intake Visit Reasons: Annual PE Allergies codeine Adverse Reaction (Unknown, Verified 02/15/25 09:41) severe headaches Medication List - Last Reconciled 02/15/25 by Chandler Brand MD atenolol 50 mg PO DAILY 90 days atorvastatin 10 mg PO DAILY 90 days lisinopril 5 mg (1/2 x 10 mg) PO DAILY 90 days tiotropium bromide 2.5 mcg/actuation (Spiriva Respimat) 2 puffs inhalation DAILY 90 days Tobacco use date assessed: 12/14/24 Fall risk assessment: No Falls in past year Last assessed Fall Risk: 02/15/25 Dental Screening Dental Screen Date: 12/14/24 HPI Annual PE HPI Details History of Present Illness - The patient is a 74-year-old female pr esenting for an annual physical exam - Cataract: The patient had a cataract s urgery on the left eye and is scheduled for surgery on the right eye on Thursday. She acknowledges improvement and the necessity for the procedure. - Essential Hypertension: Currently shahida ged on atenolol and a half dose of lisinopril. Blood pressure measurements at home around 130/80. Previously advised to increase lisinopril to full tablet if tolerable without symptoms like dizziness. - Hyperlipidemia: Cholesterol management with atorvastatin. Last LDL measurement noted at 65. - Diverticulosis: Previously identified without symptoms of constipation. Last colonoscopy was in 2020; plan 10-year follow-up. - Family History: Mother had colon cance r; brother had leukemia; father had a brain tumor. Patient concerned about her risk due to family history. Medical History: - Hyperlipidemia - Diverticulosis - Benign polyp removal - Family history of colon cancer Surgical History: - Cataract surgery on the left eye Social History: - [place] and lived there for 22 years. - Engages in activities such as mowing t he lawn and raking leaves as physical exercise. Family History: - Mother: Colon cancer - Father: Brain tumor - Brother: Leukemia Health Maintenance - Cataract surgery planned for the right eye. - Regular annual mammogram conducted at [facility], last done in June of previous year. - Colonoscopy follow-up discussed, with family history as a concern, next recommended in 2026. - Vitamin D and calcium supplementation advised. Medications - Atenolol 50 mg for Hypertension - Lisinopril 2.5 mg, instructed to incre ase as needed for Hypertension - Atorvastatin 10 mg for Hyperlipidemia - Multivitamins including Vitamin D - Calcium supplements Diagnostic results - Labs: CBC normal, no anemia, platelet count normal, electrolytes normal, kidney functions fine, liver enzymes fine. - Cholesterol: LDL 65 Patient Instructions - Begin taking the full lisinopril table t if tolerable without dizziness. - Continue monitoring blood pressure at home. - continue other medications - follow-up 4 months Review of Systems - General: No fever no chills - Neurological: No headaches no dizzin ess - Ear nose throat: No sore throat no hearing difficulty no ear pain - Cardiovascular: No syncope, no chest pain, no palpitations - Gastrointestinal: No nausea vomiting or diarrhea - Endocrine: No polyuria polydipsia no heat intolerance - Genitourinary: No dysuria - Skin: No new complaints Physical Exam General: Cooperative, healthy appearing, comfortable, no acute distress Orientation: Patient oriented x3: Head: Normal to inspection Ears: Within normal limit visually Nose: Normal external nose present Face and sinus: Normal facial exam Eyes: Appearance normal, extraocular movement intact pupils reactive Neck: Normal visual inspection and supple Respiratory: Normal respiratory effort and able to speak in complete sentences. Clear to auscultation, no stridor Cardiovascular: S1 and S2 RRR Breast exam benign GI: Normal to inspection. Soft to palpation and nontender Skin: Turgor normal, no acute findings Neuro: Patient oriented x3, motor sensory intact, balance intact, tandem pass Extremities: Normal to inspection PFSH Medical History Recurrent UTI COPD (chronic obstructive pulmonary disease) Lipid disorder Hypertension, essential Surgical History Hx of colonoscopy History of total hysterectomy History of tubal ligation History of acoustic neuroma Family History Father Brain tumor Diabetes mellitus Mother Colon cancer Alzheimer's disease Maternal Grandmother Unknown family medical history Maternal Grandfather Unknown family medical history Paternal Grandmother No problems noted. Paternal Grandfather No problems noted. Brother No problems noted. Son No problems noted. Daughter No problems noted. Son Back problem Social History Housing: Other (mobile home) Alcohol intake: current Alcohol intake frequency: does not drink Alcohol type: wine Patient Tobacco Use Status: Never used Tobacco e-Cigarette/Vaping Use: Never Used service: No Current occupational status: retired Cognitive needs: No Hearing needs: No Vision needs: Yes Questionnaire Thrive Questionnaire Date Thrive assessed: 07/20/24 MIGUEL-7 AMB Questionnaire MIGUEL-7 Date MIGUEL - 7 assessed: 07/20/24 Source: Developed by Drs. Ángel Zhong, Anjana Lemons, Haile Puri and colleagues, with an educational maya from [employer]. Physical exam (Primary Care) Vital Signs: Last Vital Signs Pulse 66 02/15/25 09:41 BP 130/80 02/15/25 09:41 Pulse Ox 97 02/15/25 09:41 BMI result Body Mass Index 29.3 Tobacco/Smoking Status: Tobacco use Status Tobacco use date assessed 12/14/24 02/15/25 09:42 Patient Tobacco Use Status Never used Tobacco 02/15/25 09:42 e-Cigarette/Vaping Use Never Used 02/15/25 09:42 Thrive Assessment: Date of Thrive Assessment Date Thrive assessed 07/20/24 02/15/25 09:42 Coding Level of Care Code Est Pt Level 3 (41221) Est Pt Prev Care >65y(10680) Diagnoses Encounter for general adult medical examination with abnormal findings Z00.01 Hypertension, essential I10 Lipid disorder E78.9 Impaired fasting blood sugar R73.01 Assessment & Plan Assessment & Plan (1) Encounter for general adult medical examination with abnormal findings: Code(s): Z00.01 - Encounter for general adult medical examination with abnormal findings Category: Medical (2) Hypertension, essential: Code(s): I10 - Essential (primary) hypertension Category: Medical (3) Lipid disorder: Code(s): E78.9 - Disorder of lipoprotein metabolism, unspecified Category: Medical (4) Impaired fasting blood sugar: Code(s): R73.01 - Impaired fasting glucose Category: Medical Plan History of Present Illness - The patient is a 74-year-old female presenting for an annual physical exam - Cataract: The patient had a cataract surgery on the left eye and is scheduled for surgery on the right eye on Thursday. She acknowledges improvement and the necessity for the procedure. - Essential Hypertension: Currently managed on atenolol and a half dose of lisinopril. Blood pressure measurements at home around 130/80. Previously advised to increase lisinopril to full tablet if tolerable without symptoms like dizziness. - Hyperlipidemia: Cholesterol management with atorvastatin. Last LDL measurement noted at 65. - Diverticulosis: Previously identified without symptoms of constipation. Last colonoscopy was in 2020; plan 10-year follow-up. - Family History: Mother had colon cancer; brother had leukemia; father had a brain tumor. Patient concerned about her risk due to family history. Medical History: - Hyperlipidemia - Diverticulosis - Benign polyp removal - Family history of colon cancer Surgical History: - Cataract surgery on the left eye Social History: - She resides in a [place] that she [place] and lived there for 22 years. - Engages in activities such as mowing the lawn and raking leaves as physical exercise. Family History: - Mother: Colon cancer - Father: Brain tumor - Brother: Leukemia Health Maintenance - Cataract surgery planned for the right eye. - Regular annual mammogram conducted at [facility], last done in June of previous year. - Colonoscopy follow-up discussed, with family history as a concern, next recommended in 2026. - Vitamin D and calcium supplementation advised. Medications - Atenolol 50 mg for Hypertension - Lisinopril 2.5 mg, instructed to increase as needed for Hypertension - Atorvastatin 10 mg for Hyperlipidemia - Multivitamins including Vitamin D - Calcium supplements Diagnostic results - Labs: CBC normal, no anemia, platelet count normal, electrolytes normal, kidney functions fine, liver enzymes fine. - Cholesterol: LDL 65 Patient Instructions - Begin taking the full lisinopril tablet if tolerable without dizziness. - Continue monitoring blood pressure at home. - continue other medications - follow-up 4 months
--- OUTSIDE RECORDS SUMMARY | 2025-02-15 10:00 | XMS_ITS | Clinical Summary ---
Author Organization [facility] Address [address] [place] [phone] Phone Care Team Providers Care Chief Embalmer Name Role Phone Chandler Brand MD Primary [...] DTaP,Tdap,and Td Vaccines (1 - Tdap) 11/20/1969 Falls Risk Assessment 06/15/2022 Hepatitis C Screening 06/15/2022 Medicare Annual Wellness Visit 06/15/2022 Osteoporosis Screening (Bone Density Screening) 06/15/2022 Social Influencers of Health Screening 06/15/2022 Depression Screening 07/13/2024 COVID-19 Vaccine ( season) 2024 03/19/2024, 03/31/2023, 03/26/2022, Additional history exists Influenza Vaccine (#1) 2025 4, 03/18/2023, 03/24/2022, Additional history exists Pneumococcal Vaccine: 50+ Years Completed 06/18/2018, 04/02/2016 Zoster Vaccines Completed 05/27/2022, 02/24/2022 RSV Immunization Adult Patients Completed 03/18/2023 Breast Cancer Screening Discontinued 06/20/20 24, 06/17/2023, 05/05/2022, Additional history exists HIB Vaccines [...] PM EST No mammographic evidence of malignancy. No suspicious interval change. A negative mammogram in the presence of a clinically suspicious palpable abnormality does not preclude the possibility of malignancy or alter the indications for biopsy. ASSESSMENT: BI-RADS 1: NEGATIVE RECOMMENDATION(S): 1: Routine screening mammogram BILATERAL in 1 year. -------- FINAL REPORT -------- Dictated By: Duke Sarmiento Dictated Date: 06/20/2024 16:03 ET Assigned Physician: Duke Sarmiento Reviewed and Electronically Signed By: Duke Sarmiento Signed Date: 06/20/2024 16:10 ET Workstation ID: [id number] Transcribed By: Self Edit Transcribed Date: 06/20/2024 16:03 ET Narrative 06/20/2024 4:10 PM EST EXAM: SCREENING MAMMOGRAPHY, BILATERAL HISTORY: SCREENING. Scar marker at the site of incision upper outer right breast for reportedly benign process. COMPARISON: 06/17/2023, 05/05/2022, 05/02/2021, 04/27/2020 TECHNIQUE: Synthesized CC and MLO projections of each breast. Tomosynthesis of each breast in the CC and MLO projections. ADDITIONAL IMAGING: None Computer-aided detection was employed with the [employer] AI 3-D. TISSUE DENSITY: There are scattered areas of fibroglandular density. (BI-RADS category B) FINDINGS: RIGHT BREAST: No suspicious mass. No suspicious calcification. No distortion. No additional suspicious right breast findings There are circumscribed round densities in or on the skin of the right axilla. LEFT BREAST: No suspicious mass. No suspicious calcification. No distortion. No additional suspicious left breast findings There [...] None Computer-aided detection was employed with the [employer] AI 3-D. TISSUE DENSITY: There are scattered [...] Signed Date: 06/20/2024 16:10 ET Workstation ID: [id number] Transcribed By: Self Edit Transcribed Date: 06/20/2024 16:03 ET us Self Referral Sppl IMG BI PROCEDURES Final Resul t from Last 3 Months or Most Recently Relevant to Health Maintenance Insurance MEDICAID - [place] [employer] MEDICARE Care Teams Chief Embalmer Relationship Specialty Start Date End Date Chandler Brand MD [address] [place] [address] PCP - General Internal Medicine 06/06/19
== END 2025-02-15 10:12 | disposition home or self-care (01) ==
LOC: HO.HMCC 09:38
PROVIDERS: PCP Internal Medicine; Visit Provider Internal Medicine
DX: Z00.01 Encounter for general adult medical examination with abnormal findings (principal); I10 Essential (primary) hypertension; E78.9 Disorder of lipoprotein metabolism, unspecified; R73.01 Impaired fasting glucose

== ENCOUNTER → 2025-02-15 09:37 | Outpatient (BNVA) | payer MEDICARE, SELFPAY | PROVIDERS: PCP Internal Medicine; Visit Provider Internal Medicine | DX: Z00.01 Encounter for general adult medical examination with abnormal findings (principal); I10 Essential (primary) hypertension; E78.9 Disorder of lipoprotein metabolism, unspecified; R73.01 Impaired fasting glucose | CPT/HCPCS: 99397 ==

== ENCOUNTER 2025-05-04 08:17 | Outpatient (AMB) | payer MEDICARE, SELFPAY ==
--- NOTE | 2025-05-04 08:18 | AM.OFFWIN_ITS ---
Intake Vital Signs 05/04/25 08:19 Height 5 ft 7 in Weight 188 lb BMI 29.4 BP 145/80 H Blood Pressure Location Lt brachial Position Sitting Pulse 77 Pulse Source Pulse Oximeter Temp 98 F Temp Source Oral Pulse Oximetry (%) 96 Oxygen Delivery Method Room Air Intake Visit Reasons: EP - Right Sciatica Pain x multiple Intake Note: EP has severe right sciatic pain for the last 10 days. Patient Tobacco Use Status: Never used Tobacco Allergies codeine Adverse Reaction (Unknown, Verified 05/04/25 08:30) severe headaches Do you need a note to return to daycare/school/sports/work: No HPI HPI Comments History of Present Illness Details Patient was informed and verbally consented to the use of an ambient scribe for clinic note documentation during the visit. History of Present Illness The patient is a 74-year-old female presenting with back pain radiating to the right leg. Sciatica: - The patient reports experiencing back pain for approximately 10 days. - She describes the pain as originating from the right lower back, radiating across to the right side down to the front of the right thigh. - There is no history of trauma or injur y related to this episode. - The patient reports a worsening of sym ptoms, with gmlr-wua-heracuy medications like Tylenol and ibuprofen providing diminishing relief. - Previous management includes muscle re laxers, pain pills, and injections at a pain management facility, which have provided relief in the past. - There is no accompanying dysfunction o f urine or bowel, nor any numbness in the groin area. - The patient denies any fever. Review of Systems - Musculoskeletal: Reports back pain rad iating to the right leg, sometimes with foot numbness or tingling. - Neurological: Denies loss of function or severe sensory disturbances in the lower extremities. No saddle anesthesia - Genitourinary: Denies any urinary or b owel dysfunction. - General: Denies fever. Physical Exam General Appearance: Normal appearance, well developed. No acute distress Head: Normocephalic, atraumatic Pulmonary: No respiratory distress. Speaking in full sentences Musculoskeletal: Moving all extremities spontaneously and against gravity. Patient noted to have an antalgic gait. No TTP over spine, TTP overlying right SI joint, neg straight leg test, symmetric 5/5 strength for LE, sensation intact, limited flexion at waist 2/2 pain. Mental Status: Alert and Oriented x 3 Psychiatric: Normal mood. Normal affect. [facility] Medical History Recurrent UTI COPD (chronic obstructive pulmonary disease) Lipid disorder Hypertension, essential Surgical History Hx of colonoscopy History of total hysterectomy History of tubal ligation History of acoustic neuroma Family History Father Brain tumor Diabetes mellitus Mother Colon cancer Alzheimer's disease Maternal Grandmother Unknown family medical history Maternal Grandfather Unknown family medical history Paternal Grandmother No problems noted. Paternal Grandfather No problems noted. Brother No problems noted. Son No problems noted. Daughter No problems noted. Son Back problem Social History Housing: Other Alcohol intake: current Alcohol intake frequency: does not drink Alcohol type: wine Patient Tobacco Use Status: Never used Tobacco e-Cigarette/Vaping Use: Never Used service: No Current occupational status: retired Cognitive needs: No Hearing needs: No Vision needs: Yes Physical Exam Vital Signs: BMI result Body Mass Index 29.4 Office Meds ketorolac 30 mg/mL (1 mL) injection solution Performing Provider: Antonette Burnham MD Performing Location: [facility] Administered by: Antonette Burnham MD on 05/04/25 08:53 Dose Route Admin Location Dispensed Lot Number Expiration Date [facility] Medical Device Engineer 30 mg IM 1 mL [id number] 10/10/25 2233-4670-93 HOSPIRA/PF IZER Total Dispensed Waste 1 mL 0 % Assessment & Plan Assessment & Plan (1) Right-sided low back pain with right-sided sciatica: Code(s): M54.41 - Lumbago with sciatica, right side Qualifiers: Chronicity: acute Qualified Code(s): M54.41 - Lumbago with sciatica, right side Plan - The patient presents with symptoms consistent with sciatica, including radiating pain to the right leg - I recommended a Toradol injection, an anti-inflammatory and pain-relieving intervention administered via intramuscular injection - Monitored the patient for 10 minutes post-injection to assess response to treatment. - Prescribed Meloxicam, an oral NSAID, to be commenced the following day with food to minimize gastrointestinal upset as needed. - Advised alternating heat at home to manage the back pain. - Instructions were given to avoid strain and gentle stretching - F/U if worsening symptoms Orders: Orders AMB Ketorolac Injection Today M53.3 - Sacrococcygeal disorders, not elsewhere classified Medications: New meloxicam Start 05/05/25 with food as needed 7.5 mg PO DAILY PRN 10 tabs 0RF pain Coding Level of Care Code Est Pt Level 3 (12405) Diagnoses Acute right-sided low back pain with right-sided sciatica M54.41 Chronicity: acute
[2025-05-04 08:19] VITALS: BP 145/80; PULSE 77; TEMP 36.6; O2SAT 96; BMI 29.4
--- OUTSIDE RECORDS SUMMARY | 2025-05-04 08:36 | XMS_ITS | Clinical Summary ---
Author Organization [facility] Address [address] [place] [phone] Phone Care Team Providers Care Marshmallow Maker Name Role Phone Chandler Brand MD Primary Care Provider [phone] Surgical History Surgery Date Site/Laterality Comments HYSTERECTOMY [...] Depression Screening 07/13/2024 COVID-19 Vaccine ( season) 2025 03/19/2024, 03/31/2023, 03/26/2022, Additional history exists Influenza [...] Signed Date: 06/20/2024 16:10 ET Workstation ID: [id number] Transcribed By: Self Edit Transcribed Date: 06/20/2024 [...] None Computer-aided detection was employed with the [email or web address] AI 3-D. TISSUE DENSITY: There are scattered [...] None Computer-aided detection was employed with the [email or web address] AI 3-D. TISSUE DENSITY: There are scattered [...] Signed Date: 06/20/2024 16:10 ET Workstation ID: [id number] Transcribed By: Self Edit Transcribed Date: 06/20/2024 16:03 ET us Self Referral Sppl IMG BI PROCEDURES Final Resul t from Last 3 Months or Most Recently Relevant to Health Maintenance Insurance [place] [employer] MEDICARE Care Teams Marshmallow Maker Relationship Specialty Start Date End Date Chandler Brand MD [address] [place] [address] PCP - General Internal Medicine 06/06/19
== END 2025-05-04 09:08 | disposition home or self-care (01) ==
PROVIDERS: PCP Internal Medicine; Visit Provider Family Medicine
DX: M53.3 Sacrococcygeal disorders, not elsewhere classified (principal); M54.41 Lumbago with sciatica, right side

== ENCOUNTER → 2025-05-04 08:17 | Outpatient (BNVA) | payer MEDICARE, SELFPAY | PROVIDERS: PCP Internal Medicine; Visit Provider Family Medicine | DX: M54.31 Sciatica, right side (principal); M53.3 Sacrococcygeal disorders, not elsewhere classified | CPT/HCPCS: 96372; 99212; J1885 ==

== ENCOUNTER 2025-06-27 09:38 | Outpatient (REF) | payer MEDICARE, SELFPAY ==
--- OUTSIDE RECORDS SUMMARY | 2025-06-23 09:14 | XMS_ITS | Encounter Summary ---
Author Organization [facility] Address [id number] [place] [phone] Care Team Providers Care Bottle Packing Machine Cleaner Name Role Phone Chandler Brand MD Primary Care Provider Reason for Visit * Imaging (Routine) - Pending Review Specialty Diagnoses / Procedures Referred By Smith mendez Referred To Contact Radiology Diagnoses Encounter for screening mammogram for breast cancer Procedures MG Mammo Digital Screening w Derek bilat MG Mammo Digital Screening bilat MG Mammo Digital Screening bilat Sppl, Self Referral [facility] Referral ID Status Reason Start Date Expiration Date V isits Requested Visits Authorized [id number] Pending Review 05/17/2025 05/17/2026 1 1 Encounter Details Date Type Department Care Team (Latest Contact Info) Description 06/23/2025 9:14 AM EST - 06/23/2025 11:59 PM EST Hospital [facility] at [address] [phone] Encounter for screening mammogram for breast cancer Discharge Disposition: Home or Self Care Social History Tobacco Use Types Packs/Day Years Used Date Smoking Tobacco: Never Assessed Comments No Sex and Gender Information Value Date Recorded Sex Assigned at Not on file Legal Sex Female 1:09 AM EST Gender Identity Not on file Sexual Orientation Not on file documented as of this encounter Discharge Disposition Disposition Code Departure Means Destination Home or Self Care documented in this encounter Plan of Treatment Not on file documented as of this encounter Procedures Procedure Name Priority Date/Time Associated Diagnosis Comments MG MAMMO DIGITAL SCREENING W DEREK BILAT Routine 06/23/2025 9:30 AM EST Encounter for screening mammogram for breast cancer documented in this encounter Results * MG Mammo Digital Screening w Derek bilat (06/23/2025 9:30 AM EST) Anatomical Region Laterality Modality Breast Bilateral Mammography 06/23/2025 9:40 AM EST Impressions 06/23/2025 9:46 AM EST No mammographic evidence of malignancy. No suspicious interval change. A negative mammogram in the presence of a clinically suspicious palpable abnormality does not preclude the possibility of malignancy or alter the indications for biopsy. ASSESSMENT: BI-RADS 1: NEGATIVE RECOMMENDATION(S): 1: Routine screening mammogram BILATERAL in 1 year. [facility] at [address], [address] -------- FINAL REPORT -------- Dictated By: Duke Sarmiento Dictated Date: 06/23/2025 09:40 ET Assigned Physician: Duke Sarmiento Reviewed and Electronically Signed By: Duke Sarmiento Signed Date: 06/23/2025 09:46 ET Workstation ID: [id number] Transcribed By: Self Edit Transcribed Date: 06/23/2025 09:40 ET Narrative 06/23/2025 9:46 AM EST EXAM: SCREENING MAMMOGRAPHY, BILATERAL HISTORY: SCREENING. Scar upper outer right breast for reportedly benign process. COMPARISON: 06/20/24, 06/17/23, 05/05/22, 05/02/21 TECHNIQUE: Synthesized CC and MLO projections of each breast. Tomosynthesis of each breast in the CC and MLO projections. ADDITIONAL IMAGING: None Computer-aided detection was employed with the [employer] AI 3-D. TISSUE DENSITY: There are scattered areas of fibroglandular density. (BI-RADS category B) FINDINGS: RIGHT BREAST: No suspicious mass. No suspicious calcification. No distortion. No additional suspicious right breast findings LEFT BREAST: No suspicious mass. No suspicious calcification. No distortion. No additional suspicious left breast findings Procedure Note Duke Sarmiento MD - 06/23/2025 EXAM: SCREENING MAMMOGRAPHY, BILATERAL HISTORY: SCREENING. Scar upper outer right breast for reportedly benignprocess. COMPARISON: 06/20/24, 06/17/23, 05/05/22, 05/02/21 TECHNIQUE: Synthesized CC and MLO projections of each breast.Tomosynthesis of each breast in the CC and MLO projections. ADDITIONAL IMAGING: None Computer-aided detection was employed with the [employer] AI 3-D. TISSUE DENSITY: There are scattered areas of fibroglandular density.(BI-RADS category B) FINDINGS: RIGHT BREAST: No suspicious mass. No suspicious calcification. No distortion. Noadditional suspicious right breast findings LEFT BREAST: No suspicious mass. No suspicious calcification. No distortion. Noadditional suspicious left breast findings IMPRESSION: No mammographic evidence of malignancy. No suspicious interval change. A negative mammogram in the presence of a clinically suspicious palpableabnormality does not preclude the possibility of malignancy or alter theindications for biopsy. ASSESSMENT: BI-RADS 1: NEGATIVE RECOMMENDATION(S): 1: Routine screening mammogram BILATERAL in 1 year. [facility]amm[facility] location[facility] at [address], [address] -------- FINAL REPORT -------- Dictated By: Duke Sarmiento Dictated Date: 06/23/2025 09:40 ET Assigned Physician: Duke Sarmiento Reviewed and Electronically Signed By: Duke Sarmiento Signed Date: 06/23/2025 09:46 ET Workstation ID: [id number] Transcribed By: Self Edit Transcribed Date: 06/23/2025 09:40 ET us Self Referral Sppl IMG BI PROCEDURES Final Resul t documented in this encounter Visit Diagnoses Diagnosis Encounter for screening mammogram for breast cancer documented in this encounter Care Teams Bottle Packing Machine Cleaner Relationship Specialty Start Date End Date Chandler Brand MD [address] [place] [phone] PCP - General Internal Medicine 06/06/19 documented as of this encounter
--- OUTSIDE RECORDS SUMMARY | 2025-06-27 11:26 | XMS_ITS | Clinical Summary ---
Author Organization [facility] Address [address] [place] [address] Phone Care Team Providers Care Deck And Hull Assembler Name Role Phone Chandler Brand MD Primary Care Provider [phone] Encounters Date Type Department Care Team Description 06/23/2025 9:14 AM EST - 06/23/2025 11:59 PM EST Hospital [facility] at [address] [phone] Encounter for screening mammogram for breast cancer Discharge Disposition: Home or Self Care from Last 3 Months Surgical History Surgery Date Site/Laterality Comments HYSTERECTOMY [...] Health Maintenance Due Date Last Done Comments Falls Risk Assessment 06/15/2022 Hepatitis C Screening 06/15/2022 Medicare Annual Wellness Visit 06/15/2022 Osteoporosis Screening (Bone Density Screening) 06/15/2022 Social Influencers of Health Screening 06/15/2022 Depression Screening 07/13/2024 COVID-19 Vaccine ( season) 2025 03/20/2025, 03/19/2024, 03/31/2023, Additional history exists DTaP,Tdap,and Td Vaccines (2 - Td or Tdap) 08/24/2034 08/24/2024 Pneumococcal Vaccine: 50+ Years Completed 06/18/2018, 04/02/2016 Zoster Vaccines Completed 05/27/2022, 02/24/2022 RSV Immunization Adult Patients Completed 03/18/2023 Influenza Vaccine Completed 03/20/2025, , 03/18/2023, Additional history exists Breast Cancer Screening Discontinued 06/23/20, 06/20/2024, 06/17/2023, Additional history exists HIB Vaccines Aged Out [...] for breast cancer from Last 3 Months Results * MG Mammo Digital Screening w [...] year. [facility] at [address], [address] -------- FINAL REPORT -------- Dictated By: Duke Sarmiento Dictated Date: 06/23/2025 09:40 ET Assigned Physician: Duke Sarmiento Reviewed and Electronically Signed By: Duke Sarmiento Signed Date: 06/23/2025 09:46 ET Workstation ID: [id number] Transcribed By: Self Edit Transcribed Date: 06/23/2025 09:40 ET Narrative 06/23/2025 9:46 AM EST EXAM: SCREENING MAMMOGRAPHY, BILATERAL HISTORY: SCREENING. Scar upper outer right breast for reportedly benign process. COMPARISON: 06/20/24, 06/17/23, 05/05/22, 05/02/21 TECHNIQUE: Synthesized CC and MLO projections of each breast. Tomosynthesis of each breast in the CC and MLO projections. ADDITIONAL IMAGING: None Computer-aided detection was employed with the [employer] AI 3-D. TISSUE DENSITY: There are scattered [...] None Computer-aided detection was employed with the [employer] AI 3-D. TISSUE DENSITY: There are scattered [...] year. Mammography location[facility] at [address], [address] -------- FINAL REPORT -------- Dictated By: Duke Sarmiento Dictated Date: 06/23/2025 09:40 ET Assigned Physician: Duke Sarmiento Reviewed and Electronically Signed By: Duke Sarmiento Signed Date: 06/23/2025 09:46 ET Workstation ID: [id number] Transcribed By: Self Edit Transcribed Date: 06/23/2025 09:40 ET us Self Referral Sppl IMG BI PROCEDURES Final Resul t from Last 3 Months Insurance MED[place]ID - [place] [employer] MEDICARE Care Teams Deck And Hull Assembler Relationship Specialty Start Date End Date Chandler Brand MD [address] [place] [phone] PCP - General Internal Medicine 06/06/19
[2025-06-27 13:39] LABS: MANUAL DIFF FLAG NO
[2025-06-27 13:44] LABS: Hematocrit 40.7 % (37.0-47.0); Hemoglobin 13.2 g/dl (12.0-16.0); Imm Gran Abs Auto 0.01 X10*3/uL (0.00-0.03); Imm Gran Pct Auto 0.2 % (0.0-0.4); Lymphocytes Absolute Auto 1.4 X10*3/uL (1.2-4.9); Mean Corpuscular HGB Conc 32.4 g/dl (31.0-35.0); Mean Corpuscular Hemoglobin 30.5 pg (27.0-33.0); Mean Corpuscular Volume 94.0 fL (80.0-98.0); NRBC Abs Auto 0.000 X10*3/uL (0.0-0.012); NRBC Pct Auto 0.0 /100WBC (0.0-0.2); Platelet Count 244 X10*3/uL (160-400); Red Blood Count 4.33 X10*6/uL (4.20-5.50); White Blood Count 4.7 X10*3/uL (4.8-10.8)
[2025-06-27 15:29] LABS: Alanine Aminotransferase 20 U/L (0-31); Albumin Level 4.5 g/dL (3.5-5.0); Alkaline Phosphatase 52 U/L (39-117); Anion Gap 12 (12-20); Aspartate Amino Transferase 26 U/L (5-31); Blood Urea Nitrogen 13 mg/dL (9-16); Calcium 9.5 mg/dL (8.4-10.2); Carbon Dioxide 26 mmol/L (22-29); Chloride 102 mmol/L (96-108); Cholesterol 160 mg/dL (<200); Estimated Glomerular Filt Rate > 60; HDL Cholesterol 38 mg/dL (>40); Potassium 4.0 mmol/L (3.3-5.1); Sodium 136 mmol/L (135-145); Total Protein 7.1 g/dL (6.5-8.0); Triglycerides 259 mg/dL (<150)
== END 2025-06-27 09:39 | disposition home or self-care (01) ==
LOC: HO.HMGCLDS 09:38
PROVIDERS: PCP Internal Medicine; Visit Provider Internal Medicine
DX: E66.09 Other obesity due to excess calories (principal); E78.9 Disorder of lipoprotein metabolism, unspecified; R73.01 Impaired fasting glucose; I10 Essential (primary) hypertension; Z68.30 Body mass index [BMI] 30.0-30.9, adult
CPT/HCPCS: 36415; 80053; 80061; 83036; 85025

== ENCOUNTER 2025-07-04 10:04 | Outpatient (AMB) | payer MEDICARE, SELFPAY ==
[2025-07-04 10:06] VITALS: BP 130/74; PULSE 76; O2SAT 98; BMI 29.3
--- NOTE | 2025-07-04 10:06 | MHC.PC.OV ---
Vital Signs 07/04/25 10:06 Height 5 ft 7 in Weight 187 lb BMI 29.3 BP 130/74 Blood Pressure Location Lt brachial Position Sitting Pulse 76 Pulse Source Pulse Oximeter Pulse Oximetry (%) 98 Intake Visit Reasons: 4 months f/up - see comments Allergies codeine Adverse Reaction (Unknown, Verified 07/04/25 10:06) severe headaches Medication List - Last Reconciled 07/04/25 by Chandler Brand MD atenolol 50 mg PO DAILY 90 days atorvastatin 10 mg PO DAILY 90 days lisinopril 5 mg (1/2 x 10 mg) PO DAILY 90 days tiotropium bromide 2.5 mcg/actuation (Spiriva Respimat) 2 puffs inhalation DAILY 90 days Tobacco use date assessed: 12/14/24 Fall risk assessment: No Falls in past year Last assessed Fall Risk: 07/04/25 Dental Screening Dental Screen Date: 12/14/24 HPI HPI Comments History of Present Illness Details History of Present Illness The patient is a 74 year old female presenting for a regular follow-up appointment for chronic condition management and evaluation of a leg lump. Sciatica: - The patient reports her sciatica flared up in April. - She was seen at a walk-in clinic where she received an intramuscular ketorolac injection, which provided relief for approximately six weeks. - She also used a back brace with Velcro, which she found helpful. Subcutaneous Cyst: - The patient has a concern about a lump on her leg, which was also noted during a visit to a walk-in emergency department. - She reports having it for quite a while, and states it is not worsening or causing pain. Essential Hypertension: - Her blood pressure is managed with lisinopril 5 mg and atenolol 50 mg. - Her blood pressure at this visit was 130/74 mmHg. Chronic Obstructive Pulmonary Disease: - She uses a Spiriva inhaler daily. - She reports her breathing is not bad at all and that she tries to stay active. Hyperlipidemia: - The patient takes atorvastatin 10 mg. - A recent blood test showed her LDL was 71 mg/dL. Health Maintenance: - She recently had a mammogram on June 23, which was normal with no signs of breast cancer. - She is up to date on her flu and COVID-19 immunizations. - The patient is concerned about her risk for diabetes due to family history, but her recent HbA1c was 5.7, indicating she is prediabetic. Medical History: - Sciatica - Hypertension - Hyperlipidemia - Chronic Obstructive Pulmonary Disease Medications: - Lisinopril 5 mg for hypertension - Atenolol 50 mg for hypertension - Spiriva inhaler daily for breathing - Atorvastatin 10 mg for hyperlipidemia Social History: - Activity Level: Patient reports that she tries to stay active. Family History: - Father had a history of diabetes. Diagnostic Results: - Recent Lab Results: - CBC: Good - Electrolytes: Within normal limits - Kidney function: Good - Hemoglobin A1c: 5.7 - Liver enzymes: Good - LDL cholesterol: 71 mg/dL - Imaging: - Mammogram (June 23): Normal, with no signs of breast cancer. [facility] Medical History Recurrent UTI COPD (chronic obstructive pulmonary disease) Lipid disorder Hypertension, essential Surgical History Hx of colonoscopy History of total hysterectomy History of tubal ligation History of acoustic neuroma Family History Father Brain tumor Diabetes mellitus Mother Colon cancer Alzheimer's disease Maternal Grandmother Unknown family medical history Maternal Grandfather Unknown family medical history Paternal Grandmother No problems noted. Paternal Grandfather No problems noted. Brother No problems noted. Son No problems noted. Daughter No problems noted. Son Back problem Social History Housing: Other Alcohol intake: current Alcohol intake frequency: does not drink Alcohol type: wine Patient Tobacco Use Status: Never used Tobacco e-Cigarette/Vaping Use: Never Used service: No Current occupational status: retired Cognitive needs: No Hearing needs: No Vision needs: Yes Questionnaire Thrive Questionnaire Date Thrive assessed: 07/20/24 MIGUEL-7 AMB Questionnaire MIGUEL-7 Date MIGUEL - 7 assessed: 07/20/24 Source: Developed by Drs. Ángel Zhong, Anjana Lemons, Haile Puri and colleagues, with an educational maya from [employer]. Review of Systems Narrative Review of Systems - General: No fever no chills - Neurological: No headaches no dizziness - Ear nose throat: No sore throat no hearing difficulty no ear pain - Cardiovascular: No syncope, no chest pain, no palpitations - Gastrointestinal: No nausea vomiting or diarrhea - Endocrine: No polyuria polydipsia no heat intolerance - Genitourinary: No dysuria , no blood in urine Physical exam (Primary Care) Vital Signs: Last Vital Signs Pulse 76 07/04/25 10:06 BP 130/74 07/04/25 10:06 Pulse Ox 98 07/04/25 10:06 BMI result Body Mass Index 29.3 Tobacco/Smoking Status: Tobacco use Status Tobacco use date assessed 12/14/24 07/04/25 10:09 Patient Tobacco Use Status Never used Tobacco 07/04/25 10:09 e-Cigarette/Vaping Use Never Used 07/04/25 10:09 Thrive Assessment: Date of Thrive Assessment Date Thrive assessed 07/20/24 07/04/25 10:09 Narrative Physical Exam General: No acute distress HEENT: No acute findings Neck: Supple Respiratory system: Able to talk in full sentences, no audible wheeze, lungs are clear Cardiovascular: S1-S2 regular in rate and rhythm Gastrointestinal: No pain Extremities: No new findings, presence of a small cyst on the right lower leg, firm and moveable, no swelling HOURLY SIGN LANGUAGE INTERPRETER: Alert awake oriented x3 motor intact Skin: Normal turgor Coding Level of Care Code Est Pt Level 4 (81353) Diagnoses Hypertension, essential I10 Lipid disorder E78.9 Other emphysema J43.8 COPD type: emphysema Emphysema type: other Impaired fasting blood sugar R73.01 Subcutaneous cyst L72.9 Right lumbar radiculitis M54.16 History of acoustic neuroma Z86.018 Time Spent (min) 30 Assessment & Plan Assessment & Plan (1) Hypertension, essential: Code(s): I10 - Essential (primary) hypertension Category: Medical (2) Lipid disorder: Code(s): E78.9 - Disorder of lipoprotein metabolism, unspecified Category: Medical (3) COPD (chronic obstructive pulmonary disease): Code(s): J44.9 - Chronic obstructive pulmonary disease, unspecified Category: Medical Qualifiers: COPD type: emphysema Emphysema type: other Qualified Code(s): J43.8 - Other emphysema (4) Impaired fasting blood sugar: Code(s): R73.01 - Impaired fasting glucose Category: Medical (5) Subcutaneous cyst: Code(s): L72.9 - Follicular cyst of the skin and subcutaneous tissue, unspecified Category: Medical (6) Right lumbar radiculitis: Code(s): M54.16 - Radiculopathy, lumbar region Category: Medical (7) History of acoustic neuroma: Comment: 2012 Code(s): Z86.018 - Personal history of other benign neoplasm Category: Surgical Plan Problem List - Essential Hypertension - Hyperlipidemia - Sciatica - Chronic Obstructive Pulmonary Disease - Subcutaneous cyst of skin, right lower leg - Varicose veins of lower extremity - Preventative care: Normal mammogram - Preventative care: Vaccinations up to date (influenza, COVID-19) Plan - Subcutaneous cyst of the right lower leg: The patient was reassured that the firm, mobile lump is a benign cyst and not related to her veins. - She was advised to monitor the area, but that it is not a cause for concern and will not cause problems. - Chronic condition management: The patient will continue her current medications, including lisinopril, atenolol, atorvastatin, and Spiriva. - Health maintenance: A copy of the recent normal mammogram report will be obtained for her records. - Diabetes risk: The patient was reassured that her recent lab results, including an HbA1c of 5.7, are good and she does not need to worry about her blood sugar. - Follow-up: The patient is scheduled to return in approximately four months, around October.
--- OUTSIDE RECORDS SUMMARY | 2025-07-04 11:05 | XMS_ITS | Clinical Summary ---
Author Organization [facility] Address [address] [place] [address] Phone Care Team Providers Care Activated Sludge Operator Name Role Phone Chandler Brand MD Primary Care Provider [phone] Encounters Date Type Department Care Team Description 06/23/2025 9:14 AM EST - 06/23/2025 11:59 PM EST Hospital Encounter [facility] at [address] [phone] Encounter for screening mammogram for breast cancer [...] year. Mammography location: [facility] at [address], [address] -------- FINAL REPORT -------- Dictated By: Duke Sarmiento Dictated Date: 06/23/2025 09:40 ET Assigned Physician: Duke Sarmiento Reviewed and Electronically Signed By: Duke Sarmiento Signed Date: 06/23/2025 09:46 ET Workstation ID: [id number] Transcribed By: Self Edit Transcribed Date: 06/23/2025 09:40 ET Narrative 06/23/2025 9:46 AM EST EXAM: SCREENING MAMMOGRAPHY, BILATERAL HISTORY: SCREENING. Scar upper outer right breast for reportedly benign process. COMPARISON: 06/20/24, 06/17/23, 05/05/22, 05/02/21 TECHNIQUE: Synthesized CC and MLO projections of each breast. Tomosynthesis of each breast in the CC and MLO projections. ADDITIONAL IMAGING: None Computer-aided detection was employed with the [employer] AI 3-D. TISSUE DENSITY: There are scattered [...] None Computer-aided detection was employed with the [employer] AI 3-D. TISSUE DENSITY: There are scattered [...] year. Mammography location: [facility] at [address], [id number] -------- FINAL REPORT -------- Dictated By: Duke Sarmiento Dictated Date: 06/23/2025 09:40 ET Assigned Physician: Duke Sarmiento Reviewed and Electronically Signed By: Duke Sarmiento Signed Date: 06/23/2025 09:46 ET Workstation ID: [id number] Transcribed By: Self Edit Transcribed Date: 06/23/2025 09:40 ET us Self Referral [facility] IMG BI PROCEDURES Final Resul t from Last 3 Months Insurance MEDICAID - [place] [employer] MEDICARE Care Teams Activated Sludge Operator Relationship Specialty Start Date End Date Chandler Brand MD [address] [place] [address] PCP - General Internal Medicine 06/06/19
== END 2025-07-04 10:32 | disposition home or self-care (01) ==
LOC: HO.HMCC 10:05
PROVIDERS: PCP Internal Medicine; Visit Provider Internal Medicine
DX: I10 Essential (primary) hypertension (principal); E78.9 Disorder of lipoprotein metabolism, unspecified; J43.8 Other emphysema; R73.01 Impaired fasting glucose; L72.9 Follicular cyst of the skin and subcutaneous tissue, unspecified; M54.16 Radiculopathy, lumbar region; Z86.018 Personal history of other benign neoplasm

== ENCOUNTER → 2025-07-04 10:04 | Outpatient (BNVA) | payer MEDICARE, SELFPAY | PROVIDERS: PCP Internal Medicine; Visit Provider Internal Medicine | DX: I10 Essential (primary) hypertension (principal); E78.9 Disorder of lipoprotein metabolism, unspecified; J43.8 Other emphysema; R73.01 Impaired fasting glucose; M54.16 Radiculopathy, lumbar region; L72.9 Follicular cyst of the skin and subcutaneous tissue, unspecified; Z86.018 Personal history of other benign neoplasm; Z79.899 Other long term (current) drug therapy | CPT/HCPCS: 99212 ==